=== PATIENT | male | born 1995 | race Caucasian/White ===

== ENCOUNTER 2016-04-17 21:29 | Inpatient (IN) | payer BC, OTHER ==
[~2016-04-17] VITALS: Ht 172.7 cm; Wt 146.1 kg
[2016-04-17] MEDS ORDERED: ONDANSETRON 4MG/2ML VIAL (J2405) As Ordered ONE (22:31)
[2016-04-17] MEDS ORDERED: KETOROLAC 30 MG/ML VIAL (J1885) As Ordered ONE (22:31)
[2016-04-17 22:47] LABS: BASO % 0.7 % (0.0-1.0); EOS % 0.8 % (0.0-3.0); LARGE UNSTAINED CELL # 0.2 K/mm3 (0.0-0.4); LARGE UNSTAINED CELL % 2.6 % (0.0-4.0); LYMPH # 0.7 K/mm3 (1.5-6.5); LYMPH % 11.4 % (24.0-44.0); MEAN CORPUSCULAR HEMOGLOBIN 28.9 pg (27.0-33.0); MEAN CORPUSCULAR HGB CONC 33.9 g/dl (32.0-36.5); MEAN CORPUSCULAR VOLUME 85.3 fl (80.0-96.0); MONO # 0.5 K/mm3 (0.0-0.8); MONO % 8.2 % (0.0-5.0); NEUTROPHILS # 4.5 K/mm3 (1.8-7.7); NEUTROPHILS % 76.4 % (36.0-66.0); PLATELET COUNT, AUTOMATED 246 k/mm3 (150-450); RED CELL DISTRIBUTION WIDTH 12.3 % (11.5-14.5); WHITE BLOOD COUNT 5.8 K/mm3 (4.0-10.0)
[2016-04-17 22:48] LABS: MICROSCOPIC INDICATED? MAN YES (NO)
[2016-04-17 22:50] LABS: RBC, URINE TNTC /hpf (0-3); WBC, URINE 40-50 /hpf (0-3)
[2016-04-17 22:52] LABS: BACTERIA, URINE SMALL AMOUNT; SQUAMOUS EPITHELIAL CELL URINE SMALL AMOUNT /hpf (SMALL AMT)
[2016-04-17 22:53] LABS: HYALINE CAST, URINE NONE SEEN /lpf (0-1); WHITE BLOOD CELL CAST, URINE 0-1 /lpf
[2016-04-17 22:54] LABS: MICROSCOPIC EXAM PERFORMED
[2016-04-17 23:20] LABS: ALBUMIN 3.9 GM/DL (3.2-5.2); ALBUMIN/GLOBULIN RATIO 1.18 (1.00-1.93); ALKALINE PHOSPHATASE 79 U/L (45-117); ALT/SGPT 67 U/L (12-78); AMYLASE 57 U/L (25-115); ANION GAP 9 MEQ/L (8-16); AST/SGOT 32 U/L (15-37); BILIRUBIN,DIRECT 0.1 MG/DL (0.0-0.2); BILIRUBIN,TOTAL 0.5 MG/DL (0.2-1.0); BLOOD UREA NITROGEN 14 MG/DL (7-18); CALCIUM LEVEL 8.4 MG/DL (8.5-10.1); CARBON DIOXIDE LEVEL 29 MEQ/L (21-32); CHLORIDE LEVEL 102 MEQ/L (98-107); CREATININE FOR GFR 1.03 MG/DL (0.70-1.30); GLUCOSE, FASTING 100 MG/DL (70-105); POTASSIUM SERUM 4.2 MEQ/L (3.5-5.1); SODIUM LEVEL 140 MEQ/L (136-145); TOTAL PROTEIN 7.2 GM/DL (6.4-8.2)
--- NOTE | 2016-04-17 23:50 | REPUSA ---
CT of the abdomen and pelvis without contrast Clinical history: pain. Technique: Multiple axial CT images were obtained from the base of the lungs to the floor of the pelv is utilizing 5 mm axial slices without administration of contrast. Coronal and sagittal reconstructio ns were also obtained. Comparison: None. Chest: The visualized lung bases are clear. Abdomen: The kidneys are normal in size bilaterally. There is no evidence of hydronephrosis or nephro lithiasis. The liver, spleen, pancreas, gallbladder and adrenal glands are unremarkable. The aorta de monstrates normal caliber and contour. There is no abdominal lymphadenopathy or ascites. Pelvis: The bowel is unremarkable, with no obstructive or inflammatory changes. The appendix is syd l. The urinary bladder is within normal limits. There is no pelvic lymphadenopathy or ascites. The ot her pelvic structures appear unremarkable. Bones: There are no suspicious osseous abnormalities seen. Impression: Unremarkable CT examination of the abdomen and pelvis.
[2016-04-18] MEDS: PIPERACILLIN/TAZOBACTAM SOD 3.375 GM in D5W MINI-BAG PLUS 50 ML IV SCH ×2
[2016-04-18] MEDS ORDERED: ACETAMINOPHEN 325 MG TAB As Ordered ONE (00:15)
[2016-04-18] MEDS ORDERED: cefTRIAXone SOD 1 GM VIAL (J0696) As Ordered ONE (00:24)
[2016-04-18] MEDS ORDERED: SODIUM CHLORIDE 0.9% 1000 ML IV SCH (00:30)
[2016-04-18] MEDS ORDERED: ONDANSETRON 4MG/2ML VIAL (J2405) IV PRN (00:30)
[2016-04-18] MEDS ORDERED: PERCOCET 5MG/325MG TAB PO PRN (00:30)
--- NOTE | 2016-04-18 01:15 | EDDOCDS ---
Physician Documentation [facility] Name: Mauricio Campoverde Age: 20 yrs Sex: Male : 1995 Arrival Date: 04/17/2016 Time: 21:29 Bed 5 Private MD: Disposition: 04/18/16 00:23 Hospitalization ordered by Nai Hahn for Inpatient Admission. Preliminary diagnosis are Urinary tract infection, site not specified, Fever, unspecified. - Bed requested for M PED. - Status is Inpatient Admission. af2 - Condition is Stable. - Problem is new. - Symptoms are unchanged. Historical: - Allergies: no known allergies; - Home Meds: 1. none - PMHx: none; - PSHx: none; - Social history: Smoking status: Patient states was never smoker of tobacco. No barriers to communication noted, The patient speaks fluent Swedish. - Family history: Not pertinent. - : The pt / caregiver states he / she is not on anticoagulants. Home medication list is obtained from the patient. - Exposure Risk Screening:: None identified. Vital Signs: 04/17 21:30 BP 164 / 89; Pulse 124; Resp 18; Temp 100.4(O); Pulse Ox 99% on R/A; Weight 136.08 kg / lr2 300.01 lbs (R); Height 5 ft. 8 in. (172.72 cm) (R); Pain 3/10; 04/18 00:11 BP 103 / 51; Pulse 106; Resp 18 S; Temp 101(O); Pulse Ox 99% ; Pain 3/10; ajs 04/17 21:30 Body Mass Index 45.62 (136.08 kg, 172.72 cm) lr2 MDM: 04/17 22:20 Financial registration complete. [email or web address] 22:21 [facility] Payment Agreement was scanned into [employer] and attached to record. ks16 22:27 Undress patient appropriately for examination ordered. ck7 22:27 IV Saline Lock ordered. ck7 22:27 NS 0.9% 1000 ml IV at bolus once ordered. ck7 22:27 ketorolac 30 mg IVP once ordered. ck7 22:27 Ondansetron 4 mg IVP once ordered. ck7 22:28 Amylase Ordered. EDMS 22:28 Basic Metabolic Profile Ordered. EDMS 22:28 CBC with Diff Ordered. EDMS 22:28 Lipase Ordered. EDMS 22:28 Liver Profile Ordered. EDMS 22:28 Urine Culture Ordered. EDMS 22:29 NOTHING BY MOUTH+DIET ordered. EDMS 22:29 CT ABD & PELVIS: No Contrast Ordered. EDMS 22:44 URINALYSIS MANUAL Ordered. EDMS 22:45 MICROSCOPIC, URINE Ordered. EDMS 23:01 CBC with Diff Reviewed. ck7 23:01 URINALYSIS MANUAL Reviewed. ck7 23:01 MICROSCOPIC, URINE Reviewed. ck7 23:24 Basic Metabolic Profile Reviewed. ck7 23:24 Amylase Reviewed. ck7 23:24 Lipase Reviewed. ck7 23:24 Liver Profile Reviewed. ck7 04/18 00:12 Acetaminophen Tablet 975 mg PO once ordered. ck7 00:13 CT ABD & PELVIS: No Contrast Reviewed. ck7 00:20 GC & Chlamydia Amplification Ordered. EDMS 00:22 cefTRIAXone 1 grams IVPB once over 30 mins; dilute in 50mL of NS or D5W ordered. ck7 00:23 BED REQUEST+ADM ordered. EDMS 00:28 Admission / Observation Status ordered. EDMS 00:28 REGULAR DIET ordered. EDMS 00:28 BASIC METABOLIC PROFILE Ordered. EDMS 00:29 BLOOD CULTURES Ordered. EDMS 00:36 DIRECT TESSY Ordered. EDMS 00:37 HAPTOGLOBIN Ordered. EDMS 00:38 HEMOSIDERIN URINE Ordered. EDMS 00:45 MICROALBUMIN RANDOM Ordered. EDMS 00:46 CBC WITH DIFFERENTIAL Ordered. EDMS 00:47 LACTATE DEHYDROGENASE Ordered. EDMS 00:47 TOTAL IRON BINDING CAPACIT Ordered. EDMS 01:01 TRANSFERRIN Ordered. EDMS 01:14 SODIUM,RANDOM URINE Ordered. EDMS 01:14 CREATININE,RANDOM URINE Ordered. EDMS Administered Medications: 04/17 22:40 Drug: ketorolac 30 mg [ketorolac 30 mg/mL (1 mL) injection solution (1 mL)] Route: IVP; [facility] Site: left antecubital; 22:40 Drug: Ondansetron 4 mg Route: IVP; Site: left antecubital; [facility] 22:41 Drug: NS 0.9% 1000 ml Route: IV; Rate: bolus; Site: left antecubital; [facility] 04/18 00:40 Follow up: IV Status: Completed infusion; IV Intake: 1000ml ko2 00:21 Drug: Acetaminophen 975 mg [acetaminophen 325 mg tablet (3 tabs)] Route: PO; ko2 00:40 Drug: cefTRIAXone 1 grams [ceftriaxone 1 gram solution for injection] Route: IVPB; ko2 Infused Over: 30 mins; Site: left antecubital; Signatures: Dispatcher [employer] Tahira Paulson, RN RN Perez Palacios, JOHANNA-C RPA-Cck7 Erica Pacheco, Statistical Clerk Unit Shahida Galindo RN RN ko2 Heather Dickens RN RN af2 Elizabeth Harmon, Reg Reg ks16 Inga Sommers RN [facility] The chart was reviewed and I authenticate all verbal orders and agree with the evaluation and treatment provided.Corrections: (The following items were deleted from the chart) 04/17 22:44 22:28 URINALYSIS+LAB ordered. EDMS EDMS 22:55 22:49 MICROSCOPIC, URINE ordered. EDMS EDMS 04/18 00:42 00:37 RETICULOCYTE COUNT ordered. EDMS EDMS 00:44 00:29 CBC WITH DIFFERENTIAL ordered. EDMS EDMS 00:47 00:37 LACTATE DEHYDROGENASE ordered. EDMS EDMS 00:47 00:37 IRON (FE) ordered. EDMS EDMS 00:48 00:37 TOTAL IRON BINDING CAPACIT ordered. EDMS EDMS 01:01 00:37 TRANSFERRIN ordered. EDMS EDMS Attachments: 04/17 22:21 [facility] Payment Agreement [email or web address] MTDD
--- NOTE | 2016-04-18 01:16 | EDDOCDS ---
Nurse's Notes [facility] Name: Mauricio Campoverde Age: 20 yrs Sex: Male : 1995 Arrival Date: 04/17/2016 Time: 21:29 Bed 5 Private MD: Diagnosis: Urinary tract infection, site not specified;Fever, unspecified Presentation: 04/17 21:40 Presenting complaint: Patient states: Sick since yesterday--headache, urine dark, back mcp pain and lower abdominal pain. Risk factors: the patient reports not having a history of previous torsion. Adult Sepsis Screening: The patient does not have new or worsening altered mentation. Patient's respiratory rate is less than 22. Systolic blood pressure is greater than 100. Patient has a qSOFA score of 0- Negative Sepsis Screen. Suicide/Homicide risk assessment- the patient denies having any suicidal and/or homicidal ideations and does not present with any other emotional, behavioral or mental health complaints. Status: Patient is not a environmental services specialist or dependent. Transition of care: patient was not received from another setting of care. 21:40 Acuity: SAVI Level 3 [facility] 21:40 Method Of Arrival: Walkin/Carried/Asstd [facility] Triage Assessment: 21:41 General: Appears uncomfortable, Behavior is cooperative. Pain: Location: back, right mcp lower quadrant and left lower quadrant Pain currently is 3 out of 10 on a pain scale. HIV screening NA for this visit Offered previously. Neurological: No deficits noted. Respiratory: Airway is patent Respiratory effort is even, unlabored. GI: Reports lower abdominal pain. : Reports dark urine. Derm: Skin is pink, warm & dry. Historical: - Allergies: no known allergies; - Home Meds: 1. none - PMHx: none; - PSHx: none; - Social history: Smoking status: Patient states was never smoker of tobacco. No barriers to communication noted, The patient speaks fluent Indonesian. - Family history: Not pertinent. - : The pt / caregiver states he / she is not on anticoagulants. Home medication list is obtained from the patient. - Exposure Risk Screening:: None identified. Screenin/26 00:42 Screening information is obtained from the patient. Fall risk: No risks identified. ko2 Assistance ADL's: requires no assistance with activities of daily living. Abuse/DV Screen: The patient / caregiver reports he/she is: not in a situation that causes fear, pain or injury. Nutritional screening: No deficits noted. Advance Directives: Currently, there is no health care proxy. There is no active DNR order. There is no living will. There is no Power of Forming Department End Finder. home support is adequate. Assessment: 04/17 22:30 General: Appears in no apparent distress, comfortable, Behavior is appropriate for age, ko2 cooperative. Pain: Location: back Pain. Neurological: Level of Consciousness is awake, alert, Oriented to person, place, time. Respiratory: Airway is patent Respiratory effort is even, unlabored. GI: Abdomen is obese, Bowel sounds present X 4 quads. Abd is soft and non tender. : Urine is blood tinged. Derm: Skin is normal. 23:30 General: Appears in no apparent distress, comfortable, Behavior is appropriate for age, ko2 cooperative. Pain: Location: back Pain currently is 4 out of 10 on a pain scale. Neurological: Level of Consciousness is awake, alert. Respiratory: Airway is patent Respiratory effort is even, unlabored. Derm: Skin is normal. 04/18 00:30 General: Appears in no apparent distress, comfortable, Behavior is appropriate for age, ko2 cooperative. Neurological: Level of Consciousness is awake, alert. Respiratory: Airway is patent Respiratory effort is even, unlabored. Derm: Skin is normal. Musculoskeletal: Range of motion intact in all extremities. 01:11 General: report given to peds at this time. resp easy and unlabored. hospitalist at af2 bedside. will continue to monitor. . Vital Signs: 04/17 21:30 BP 164 / 89; Pulse 124; Resp 18; Temp 100.4(O); Pulse Ox 99% on R/A; Weight 136.08 kg lr2 (R); Height 5 ft. 8 in. (172.72 cm) (R); Pain 3/10; 04/18 00:11 BP 103 / 51; Pulse 106; Resp 18 S; Temp 101(O); Pulse Ox 99% ; Pain 3/10; ajs 04/17 21:30 Body Mass Index 45.62 (136.08 kg, 172.72 cm) lr2 Vitals: 04/17 21:30 Log In Time: April 17, 2016 at 21:29. lr2 ED Course: 21:30 Patient visited by Jamilah Man. lr2 21:30 Patient moved to Waiting lr2 21:32 Patient moved to Pre RCE lr2 21:41 Triage Initiated mcp 21:42 Patient visited by Tahira Martin, JOE. mcp 21:42 Patient moved to Triage 1 mcp 22:11 Perez Roman RPA-C is [facility]. ck7 22:11 Raf Roth DO is Attending Physician. ck7 22:11 Patient visited by Perez Roman RPA-C. ck7 22:21 [facility] Payment Agreement was scanned into [employer] and attached to record. ks16 22:24 Shahida Yarbrough,RN is Primary Nurse. kmg1 22:24 Patient moved to I5 / M5 kmg1 22:41 Amylase Sent. ko2 22:41 Basic Metabolic Profile Sent. ko2 22:41 CBC with Diff Sent. ko2 22:41 Lipase Sent. ko2 22:41 Liver Profile Sent. ko2 22:41 Urine Culture Sent. ko2 22:42 Patient visited by Inga Sommers RN. [facility] 23:00 Inserted saline lock: 20 gauge in left antecubital area and blood collected. The ko2 patient tolerated the procedure well. 23:24 Patient visited by Perez Roman RPA-C. ck7 04/18 00:05 Patient visited by Perez Roman RPA-C. ck7 00:12 CT ABD & PELVIS: No Contrast Returned. EDMS 00:23 Nai Hahn is Hospitalizing Provider. ck7 00:23 GC & Chlamydia Amplification Sent. ko2 00:28 Heather Dickens RN is Primary Nurse. jlm 00:28 Patient moved to jl 00:43 The patient / caregiver is instructed regarding the plan of care and ED course. ko2 01:12 No procedures done that require assistance. af2 01:13 Patient visited by Heather Dickens RN. af2 Administered Medications: 04/17 22:40 Drug: ketorolac 30 mg [ketorolac 30 mg/mL (1 mL) injection solution (1 mL)] Route: IVP; [facility] Site: left antecubital; 22:40 Drug: Ondansetron 4 mg Route: IVP; Site: left antecubital; [facility] 22:41 Drug: NS 0.9% 1000 ml Route: IV; Rate: bolus; Site: left antecubital; [facility] 04/18 00:40 Follow up: IV Status: Completed infusion; IV Intake: 1000ml ko2 00:21 Drug: Acetaminophen 975 mg [acetaminophen 325 mg tablet (3 tabs)] Route: PO; ko2 00:40 Drug: cefTRIAXone 1 grams [ceftriaxone 1 gram solution for injection] Route: IVPB; ko2 Infused Over: 30 mins; Site: left antecubital; Intake: 00:40 IV: 1000.00ml; Total: 1000.00ml. ko2 Order Results: Lab Order: Amylase; SPEC' 04/17/16 22:36 Test: AMYLASE; Value: 57; Range: 25-115; Units: U/L; Status: F Lab Order: Basic Metabolic Profile; [facility] 04/17/16 22:36 Test: GLUCOSE, FASTING; Value: 100; Range: 70-105; Units: MG/DL; Status: F Test: BLOOD UREA NITROGEN; Value: 14; Range: 7-18; Units: MG/DL; Status: F Test: CREATININE FOR GFR; Value: 1.03; Range: 0.70-1.30; Units: MG/DL; Status: F Test: SODIUM LEVEL; Value: 140; Range: 136-145; Units: MEQ/L; Status: F Test: POTASSIUM SERUM; Value: 4.2; Range: 3.5-5.1; Units: MEQ/L; Status: F Test: CHLORIDE LEVEL; Value: 102; Range: 98-107; Units: MEQ/L; Status: F Test: CARBON DIOXIDE LEVEL; Value: 29; Range: 21-32; Units: MEQ/L; Status: F Test: ANION GAP; Value: 9; Range: 8-16; Units: MEQ/L; Status: F Test: CALCIUM LEVEL; Value: 8.4; Range: 8.5-10.1; Abnormal: Below low normal; Units: MG/DL; Status: F Lab Order: CBC with Diff; SPEC' 04/17/16 22:36 Test: WHITE BLOOD COUNT; Value: 5.8; Range: 4.0-10.0; Units: K/mm3; Status: F Test: RED BLOOD COUNT; Value: 5.00; Range: 4.30-6.10; Units: M/mm3; Status: F Test: HEMOGLOBIN; Value: 14.5; Range: 14.0-18.0; Units: g/dl; Status: F Test: HEMATOCRIT; Value: 42.7; Range: 42.0-52.0; Units: %; Status: F Test: MEAN CORPUSCULAR VOLUME; Value: 85.3; Range: 80.0-96.0; Units: fl; Status: F Test: MEAN CORPUSCULAR HEMOGLOBIN; Value: 28.9; Range: 27.0-33.0; Units: pg; Status: F Test: MEAN CORPUSCULAR HGB CONC; Value: 33.9; Range: 32.0-36.5; Units: g/dl; Status: F Test: RED CELL DISTRIBUTION WIDTH; Value: 12.3; Range: 11.5-14.5; Units: %; Status: F Test: PLATELET COUNT, AUTOMATED; Value: 246; Range: 150-450; Units: k/mm3; Status: F Test: NEUTROPHILS %; Value: 76.4; Range: 36.0-66.0; Abnormal: Above high normal; Units: %; Status: F Test: LYMPH %; Value: 11.4; Range: 24.0-44.0; Abnormal: Below low normal; Units: %; Status: F Test: MONO %; Value: 8.2; Range: 0.0-5.0; Abnormal: Above high normal; Units: %; Status: F Test: EOS %; Value: 0.8; Range: 0.0-3.0; Units: %; Status: F Test: BASO %; Value: 0.7; Range: 0.0-1.0; Units: %; Status: F Test: LARGE UNSTAINED CELL %; Value: 2.6; Range: 0.0-4.0; Units: %; Status: F Test: NEUTROPHILS #; Value: 4.5; Range: 1.8-7.7; Units: K/mm3; Status: F Test: LYMPH #; Value: 0.7; Range: 1.5-6.5; Abnormal: Below low normal; Units: K/mm3; Status: F Test: MONO #; Value: 0.5; Range: 0.0-0.8; Units: K/mm3; Status: F Test: EOS #; Value: 0.0; Range: 0.0-0.50; Units: K/mm3; Status: F Test: BASO #; Value: 0.0; Range: 0.0-0.2; Units: K/mm3; Status: F Test: LARGE UNSTAINED CELL #; Value: 0.2; Range: 0.0-0.4; Units: K/mm3; Status: F Lab Order: Lipase; [facility] 04/17/16 22:36 Test: LIPASE; Value: 103; Range: 73-393; Units: U/L; Status: F Lab Order: Liver Profile; [facility] 04/17/16 22:36 Test: AST/SGOT; Value: 32; Range: 15-37; Units: U/L; Status: F Test: ALT/SGPT; Value: 67; Range: 12-78; Units: U/L; Status: F Test: ALKALINE PHOSPHATASE; Value: 79; Range: 45-117; Units: U/L; Status: F Test: BILIRUBIN,TOTAL; Value: 0.5; Range: 0.2-1.0; Units: MG/DL; Status: F Test: BILIRUBIN,DIRECT; Value: 0.1; Range: 0.0-0.2; Units: MG/DL; Status: F Test: TOTAL PROTEIN; Value: 7.2; Range: 6.4-8.2; Units: GM/DL; Status: F Test: ALBUMIN; Value: 3.9; Range: 3.2-5.2; Units: GM/DL; Status: F Test: ALBUMIN/GLOBULIN RATIO; Value: 1.18; Range: 1.00-1.93; Status: F Lab Order: URINALYSIS MANUAL; [facility] 04/17/16 22:36 Test: APPEARANCE, URINE MANUAL; Value: CLOUDY; Range: CLEAR; Abnormal: Above high normal; Status: F Test: COLOR, URINE MANUAL; Value: BROWN; Range: YELLOW; Abnormal: Above high normal; Status: F Test: PH,URINE MAN; Value: 5.5; Range: 5.0 - 9.0; Units: UNITS; Status: F Test: SPECIFIC GRAVITY,URINE MANUAL; Value: 1.020; Range: 1.002-1.035; Status: F Test: PROTEIN, URINE MANUAL; Value: 3+; Range: NEGATIVE; Abnormal: Above high normal; Units: mg/dL; Status: F Test: GLUCOSE, URINE (UA) MANUAL; Value: NEGATIVE; Range: NEGATIVE; Units: mg/dL; Status: F Test: KETONE, URINE MANUAL; Value: NEGATIVE; Range: NEGATIVE; Units: mg/dL; Status: F Test: UROBILINOGEN, URINE MANUAL; Value: NORMAL; Range: NORMAL; Units: mg/dl; Status: F Test: BILIRUBIN, URINE MANUAL; Value: NEGATIVE; Range: NEGATIVE; Status: F Test: NITRITE, URINE MANUAL; Value: NEGATIVE; Range: NEGATIVE; Status: F Test: LEUKOCYTE ESTERASE, URINE MAN; Value: POSITIVE; Range: NEGATIVE; Abnormal: Above high normal; Status: F Test: BLOOD URINE MANUAL; Value: POSITIVE; Range: NEGATIVE; Abnormal: Above high normal; Status: F Lab Order: MICROSCOPIC, URINE; SPEC'M 04/17/16 22:36 Test: WBC, URINE; Value: 40-50; Range: 0-3; Units: /hpf; Status: F Test: RBC, URINE; Value: TNTC; Range: 0-3; Abnormal: Above high normal; Units: /hpf; Status: F Test: SQUAMOUS EPITHELIAL CELL URINE; Value: SMALL AMOUNT; Range: SMALL AMT; Units: /hpf; Status: F Test: BACTERIA, URINE; Value: SMALL AMOUNT; Range: NONE; Abnormal: Above high normal; Status: F Test: HYALINE CAST, URINE; Value: NONE SEEN; Range: 0-1; Units: /lpf; Status: F Test: MICROSCOPIC EXAM; Status: I Test: WHITE BLOOD CELL CAST, URINE; Value: 0-1; Range: NONE; Units: /lpf; Status: F Test: MUCUS, URINE; Value: SMALL AMOUNT; Range: NEGATIVE; Abnormal: Above high normal; Status: F Test: AMORPHOUS SEDIMENT, URINE; Value: MOD AMOUNT; Range: NEGATIVE; Abnormal: Above high normal; Status: F Test: MICROSCOPIC EXAM; Value: PERFORMED; Status: F Lab Order: RETICULOCYTE COUNT; SPEC'M 04/17/16 22:36 Test: RETICULOCYTE % [id number]; Range: 0.5-1.5; Units: %; Status: I Test: RETICULOCYTE ABSOLUTE [id number]; Range: 17-77; Units: x10(9)/L; Status: I Lab Order: LACTATE DEHYDROGENASE; SPEC'M 04/17/16 22:36 Test: LDH LACTATE DEHYDROGENASE; Range: 87-241; Units: U/L; Status: I Lab Order: TOTAL IRON BINDING CAPACIT; SPEC'M 04/17/16 22:36 Test: IRON (FE); Range: 65-175; Units: UG/DL; Status: I Test: TOTAL IRON BINDING CAPACITY; Range: 250-450; Units: UG/DL; Status: I Test: PERCENT SATURATION; Range: 19.7-37.4; Units: %; Status: I Radiology Order: CT ABD & PELVIS: No Contrast Test: CT ABD & PELVIS: No Contrast REASON FOR EXAMINATION: Renal colic; ; CT of the abdomen and pelvis without contrast; Clinical history: pain.; Technique: Multiple axial CT images were obtained from the base of the lungs to the floor of the pelv; is utilizing 5 mm axial slices without administration of contrast. Coronal and sagittal reconstructio; ns were also obtained.; Comparison: None.; Chest: The visualized lung bases are clear.; Abdomen: The kidneys are normal in size bilaterally. There is no evidence of hydronephrosis or nephro; lithiasis. The liver, spleen, pancreas, gallbladder and adrenal glands are unremarkable. The aorta de; monstrates normal caliber and contour. There is no abdominal lymphadenopathy or ascites.; Pelvis: The bowel is unremarkable, with no obstructive or inflammatory changes. The appendix is syd; l. The urinary bladder is within normal limits. There is no pelvic lymphadenopathy or ascites. The ot; her pelvic structures appear unremarkable.; Bones: There are no suspicious osseous abnormalities seen.; Impression: Unremarkable CT examination of the abdomen and pelvis.; ; Outcome: 00:23 Decision to Hospitalize by Provider. ck7 00:43 CT Study completed. ko2 01:12 Discharge Assessment: Patient awake, alert and oriented x 3. No cognitive and/or af2 functional deficits noted. Patient verbalized understanding of disposition instructions. patient administered narcotics - no. The following High Risk Discharge criteria are identified: None. Discharged to home ambulatory. Condition: stable. Property :Personal belongings accompany Pt. 01:14 Patient left the ED. af2 Signatures: Dispatcher [employer] EDMS Christine Lane, RN RN kmg1 Tahira Martin, RN Edyta Kinsey mcp, JaneRN RN [facility] Perez Roman, RPA-C RPA-Cck7 Erica Pacheco, Wax Ball Knock Out Worker Unit m Shahida Yarbrough RN RN ko2 Heather Dickens RN RN af2 Elizabeth Harmon, Reg Reg ks16 Jamilah Man2 Corrections: (The following items were deleted from the chart) 04/17 22:44 22:41 URINALYSIS+LAB sent. [facility] EDMS MTDD
[2016-04-18 01:20] VITALS: BP 115/54
[2016-04-18 01:22] LABS: RETIC HEMOGLOBIN CONTENT CHr 29.7 PG (24-36); RETICULOCYTE % ADVIA2120 2.25 % (0.5-1.5); RETICULOCYTE ABSOLUTE ADVIA212 115 x10(9)/L (17-77)
[2016-04-18 01:44] LABS: PERCENT SATURATION 8.7 % (19.7-37.4); TOTAL IRON BINDING CAPACITY 335 UG/DL (250-450)
[2016-04-18] MEDS: cefTRIAXone SOD 1 GM in D5W MINI-BAG PLUS 50 ML IV SCH ×2 (02:25→20:14)
[2016-04-18] MEDS ORDERED: NS 1,000 ML IV SCH ×2 (02:30→21:30)
--- NOTE | 2016-04-18 02:40 | HPE ---
DATE OF ADMISSION: 04/18/2016 PRIMARY CARE PHYSICIAN: None. 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. INPATIENT HOSPITAL ATTENDING: Dr. Aries Meier CHIEF COMPLAINT: Headache, back pain, and dark urine. HISTORY OF PRESENT ILLNESS: 20-year-old male with no past medical history aside from two episodes of urinary tract infection (UTI), one was a year ago, the other was about a year and six months ago treated with oral antibiotics for 7-10 days, presents to the emergency room with 2-day history of bilateral flank pain, dark urine, and headache. Patient has been in his usual state of health until yesterday morning when he got up to work. 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 He noticed very dark urine and felt that he was dehydrated. He started to drink about 2-3 liters of liquid throughout the day into the late evening. He continued to not feel well and did not sleep well into the night. When he woke up this morning, he had complaints of generalized headache without changes in vision described as achy lasting for just a few hours, slightly improved with Aleve that he took the day before, 400 mg. He had persistent bilateral flank pain without radiation prompting him to present to the emergency room. Patient denies any prior history of kidney stones and stated that he has had "dark urine" before, but not this bad. In the emergency room (ER), he was found to have a temperature of 100.4 with a T-max of 101, blood pressure was 103/51. Patient was noted to have abnormal urinalysis with positive leukocyte esterase, 50 white blood cells, and 3+ bacteria. Hospitalist service was called for admission for possible complicated urinary tract infection. CT abdomen and pelvis showed no kidney stones, no hydronephrosis, no suspicious abnormalities. PAST MEDICAL HISTORY: Two prior urinary tract infections, one was one year ago, the other was about 18 months ago, treated with oral antibiotics for one week. ALLERGIES: No known drug allergies. HOME MEDICATIONS: - Aleve PAST SURGICAL HISTORY: None. SOCIAL HISTORY: Denies any cigarette use, alcohol, or recreational drug use. 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 FAMILY HISTORY: Mother alive in her 40s with irritable bowel syndrome. Father alive in his 40s, no medical problems. On the maternal side, history of cancer in both grandparents. REVIEW OF SYSTEMS: As per history of present illness (HPI). 12-point systems otherwise negative. PHYSICAL EXAMINATION: VITAL SIGNS: Temperature 101, pulse 106, sinus tachycardia, blood pressure 103/51, 99% in room air, 136.08 kg, 5 feet 8 inches tall. GENERAL: Patient is awake, alert, and oriented, times three, answering questions appropriately. No icterus, no jaundice. HEENT: Pupils are equally round and reactive to light and accommodation. Extraocular movements are intact. Normocephalic, atraumatic. Dry mucous membranes. NECK: No cervical lymphadenopathy, thyromegaly, or pharyngeal erythema. LUNGS: Clear to auscultation. No wheezing, rales, or rhonchi. HEART: S1, S2, sinus tachycardia. No murmurs, rubs, or gallops. ABDOMEN: Obese, soft, nontender. Positive bowel sounds times four quadrants. Bilateral back pain. No vertebral tenderness. EXTREMITIES: No cyanosis, clubbing, or any pitting edema. LABORATORY DATA: White count 5.8, hemoglobin 14, hematocrit 42, platelet count 246, 76% neutrophils. Sodium 140, potassium 4.2, chloride 102, bicarbonate 29, BUN 14, creatinine 1, glucose of 100, calcium of 8.4, total bilirubin 0.5, direct bilirubin 0.1, AST 32, ALT 67, alkaline phosphatase 79, LDH is pending. Total protein 7.2, albumin of 3.9, amylase 57, lipase of 103. CT of abdomen and pelvis: Unremarkable. No hydronephrosis or kidney stones. Urinalysis: Brown in color, cloudy urine, 3+ protein, positive urine blood, positive leukocyte esterase, too numerous to count RBC, 40-50 WBC, small amount of bacteria, small mucous. ASSESSMENT AND PLAN: This is a 20-year-old male with two prior histories of urinary tract infections treated with oral antibiotics a year ago and 18 months ago, presents to the emergency room with a 2-day history of feeling unwell, describes bilateral flank pain, headache, and dark urine. Patient will be admitted for observation under hospitalist service, will be assigned to Dr. Aries Meier. IMPRESSION: 1. Complicated urinary tract infection. At this time, the patient will be given intravenous ceftriaxone, IV fluids. Due to a pressure of 108 systolic, he will be given a liter of normal saline IV bolus, monitor intake and output and IV ceftriaxone. Await urine culture results and obtain a blood culture. There is no kidney stone or hydronephrosis. Creatinine is normal, therefore, I will not consult urology at this time. Due to recurrent urinary tract infections, his primary care physician should refer him to urology as an outpatient for followup. 2. Proteinuria. May be transient. In light of patient's current urinary tract infection, he may benefit from repeat urinalysis as an outpatient to determine whether there is a significant amount of microalbuminuria. Check urine microalbumin to rule out glomerular disease. 3. Dark colored urine with complaints of headache. Differential diagnosis for purvi-colored urine includes paroxysmal nocturnal hemoglobinuria. Patient does not exhibit any significant anemia. In [facility], Anemia may not be present, therefore , we will check reticulocyte count. Check LDH and check direct Wood test if suspicious for paroxysmal nocturnal hemoglobinuria ([facility]). Proceed with definitive evaluation. 4. Headache. Appears to be tension headache. Tylenol as needed for now. No other thrombotic symptoms to suggest further evaluation. 5. Deep vein thrombosis (DVT) prophylaxis. Patient is ambulatory. May benefit from compression stockings. In light of recent hematuria, we will refrain from any anticoagulant therapy. MTDD
[2016-04-18 04:00] VITALS: BP 126/72
[2016-04-18 06:48] LABS: BASO % 0.7 % (0.0-1.0); EOS % 0.5 % (0.0-3.0); LARGE UNSTAINED CELL # 0.1 K/mm3 (0.0-0.4); LARGE UNSTAINED CELL % 3.1 % (0.0-4.0); LYMPH # 0.5 K/mm3 (1.5-6.5); LYMPH % 11.8 % (24.0-44.0); MEAN CORPUSCULAR HEMOGLOBIN 28.4 pg (27.0-33.0); MEAN CORPUSCULAR HGB CONC 32.9 g/dl (32.0-36.5); MEAN CORPUSCULAR VOLUME 86.2 fl (80.0-96.0); MONO # 0.4 K/mm3 (0.0-0.8); NEUTROPHILS # 3.3 K/mm3 (1.8-7.7); PLATELET COUNT, AUTOMATED 196 k/mm3 (150-450); RED CELL DISTRIBUTION WIDTH 12.5 % (11.5-14.5); WHITE BLOOD COUNT 4.4 K/mm3 (4.0-10.0)
[2016-04-18 07:15] LABS: ANION GAP 12 MEQ/L (8-16); BLOOD UREA NITROGEN 16 MG/DL (7-18); CALCIUM LEVEL 8.2 MG/DL (8.5-10.1); CARBON DIOXIDE LEVEL 24 MEQ/L (21-32); CHLORIDE LEVEL 107 MEQ/L (98-107); CREATININE FOR GFR 0.97 MG/DL (0.70-1.30); GLUCOSE, FASTING 97 MG/DL (70-105); POTASSIUM SERUM 3.9 MEQ/L (3.5-5.1); SODIUM LEVEL 143 MEQ/L (136-145)
[2016-04-18 07:43] LABS: RETIC HEMOGLOBIN CONTENT CHr 29.1 PG (24-36); RETICULOCYTE ABSOLUTE ADVIA212 85 x10(9)/L (17-77)
[2016-04-18 07:48] LABS: ALBUMIN 3.3 GM/DL (3.2-5.2); ALBUMIN/GLOBULIN RATIO 1.03 (1.00-1.93); ALKALINE PHOSPHATASE 75 U/L (45-117); ALT/SGPT 62 U/L (12-78); AST/SGOT 27 U/L (15-37); BILIRUBIN,DIRECT 0.2 MG/DL (0.0-0.2); BILIRUBIN,TOTAL 0.5 MG/DL (0.2-1.0); FERRITIN 261 NG/ML (26-388); TOTAL PROTEIN 6.5 GM/DL (6.4-8.2)
[2016-04-18 08:00] VITALS: BP 175/73
[2016-04-18] MEDS: ACETAMINOPHEN TAB 650MG DOSE (2X325MG) PO PRN ×2 (08:03→20:14)
[2016-04-18 08:25] LABS: MICROSCOPIC INDICATED? MAN YES (NO)
[2016-04-18 08:42] LABS: RBC, URINE TNTC /hpf (0-3); WBC, URINE 15-20 /hpf (0-3)
[2016-04-18 08:48] LABS: SQUAMOUS EPITHELIAL CELL URINE NONE SEEN /hpf (SMALL AMT)
[2016-04-18 08:49] LABS: BACTERIA, URINE SMALL AMOUNT; HYALINE CAST, URINE NONE SEEN /lpf (0-1); MICROSCOPIC EXAM PERFORMED
[2016-04-18 16:00] VITALS: BP 154/84
[2016-04-18 20:00] VITALS: BP 133/58
[2016-04-18] MEDS: FIORICET TAB PO PRN (20:19)
[2016-04-19] VITALS (9 sets, daily range): BP systolic 122–170; BP diastolic 60–99; PULSE 103
[2016-04-19] MEDS: PIPERACILLIN/TAZOBACTAM SOD 3.375 GM in D5W MINI-BAG PLUS 50 ML IV SCH ×2 (05:31→14:12)
[2016-04-19] MEDS: ACETAMINOPHEN TAB 650MG DOSE (2X325MG) PO PRN (05:36)
[2016-04-19] MEDS: FIORICET TAB PO PRN (05:36)
[2016-04-19 07:08] LABS: BASO % 0.3 % (0.0-1.0); EOS % 0.6 % (0.0-3.0); LARGE UNSTAINED CELL # 0.2 K/mm3 (0.0-0.4); LARGE UNSTAINED CELL % 3.6 % (0.0-4.0); LYMPH # 0.6 K/mm3 (1.5-6.5); LYMPH % 12.5 % (24.0-44.0); MEAN CORPUSCULAR HEMOGLOBIN 28.1 pg (27.0-33.0); MEAN CORPUSCULAR HGB CONC 33.4 g/dl (32.0-36.5); MEAN CORPUSCULAR VOLUME 84.2 fl (80.0-96.0); MONO # 0.4 K/mm3 (0.0-0.8); MONO % 8.1 % (0.0-5.0); NEUTROPHILS # 3.8 K/mm3 (1.8-7.7); NEUTROPHILS % 74.9 % (36.0-66.0); PLATELET COUNT, AUTOMATED 175 k/mm3 (150-450); RED CELL DISTRIBUTION WIDTH 12.4 % (11.5-14.5); WHITE BLOOD COUNT 5.1 K/mm3 (4.0-10.0)
[2016-04-19 07:21] LABS: ANION GAP 9 MEQ/L (8-16); BLOOD UREA NITROGEN 9 MG/DL (7-18); CALCIUM LEVEL 8.1 MG/DL (8.5-10.1); CARBON DIOXIDE LEVEL 26 MEQ/L (21-32); CHLORIDE LEVEL 105 MEQ/L (98-107); GLUCOSE, FASTING 106 MG/DL (70-105); SODIUM LEVEL 140 MEQ/L (136-145)
[2016-04-19] MEDS ORDERED: ISOVUE-370 76% 100ML VIAL (Q9967) As Ordered ONE (11:56)
--- NOTE | 2016-04-19 12:53 | REP ---
TWO VIEW CHEST: Two views. There is no evidence of acute infiltrate. No pleural effusion is seen. The heart is normal in size. The mediastinal silhouette is unremarkable. The visualized osseous structures are intact. IMPRESSION: No acute pulmonary disease. Signed by Saeid Arciniega MD 04/19/2016 04:58 P
--- NOTE | 2016-04-19 13:48 | REP ---
RENAL AND BLADDER ULTRASOUND: Real-time sonographic evaluation of kidneys performed. Kidneys are normal in size and echotexture, right kidney measuring 15.0 x 8.0 x 6.7 cm and left kidney 16.0 x 5.2 x 7.3 cm. There is no hydronephrosis or nephrolithiasis. No renal mass is seen. Urinary bladder is mildly distended measuring 7.5 x 7.6 x 5.7 cm with no mass or calculus. IMPRESSION: Negative renal and bladder ultrasound. Signed by Saeid Arciniega MD 04/19/2016 04:59 P
[2016-04-19] MEDS ORDERED: HEPARIN SOD (PORCINE) 5000 UNITS/ML VIAL SQ SCH (14:00)
[2016-04-19] MEDS ORDERED: ASPIRIN 81 MG CHEW TABLET PO ONE (15:30)
[2016-04-19] MEDS ORDERED: ATOR1TAB21 PO (15:47)
[2016-04-19] MEDS ORDERED: ASPI81TA PO (15:47)
[2016-04-19] MEDS ORDERED: LOVE0.8I3 SC (15:47)
[2016-04-19] MEDS ORDERED: ATORVASTATIN 20 MG TAB PO ONE (16:00)
--- NOTE | 2016-04-19 16:35 | DSES ---
DATE OF ADMISSION: 04/19/2016 DATE OF DISCHARGE: PRIMARY CARE PROVIDER: None. FINAL DIAGNOSES: 1. ST elevation myocardial infarction (STEMI) versus myocarditis versus pericarditis. 2. Complicated urinary tract infection (UTI). 3. Proteinuria. 4. Headache. 5. Chest pain. HISTORY OF PRESENT ILLNESS: This is a 20-year-old male patient with no significant past medical history other than obesity, had two episodes of UTI, one a year ago, the other one about 6 months ago, treated with oral antibiotics for 7-10 days, presented to the emergency room for 2-day history of bilateral flank pain, dark urine, and headache. Patient was in his usual state of health until about 2 days ago when the patient got up to work. 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 He noticed very dark urine and felt that he was dehydrated and started to drink about 2-3 liters of liquid throughout the day into the late evening and continued to feel not well, did not sleep, and was feeling flustered and warm. Woke up in the morning of his admission with generalized weakness and headache without any vision change, with no nausea or vomiting. Taken Aleve with improvement but still had persistent bilateral flank pain, worse on the right, without radiation. Presented to the emergency room. Denies history of kidney stone. In the emergency department (ED), patient was found to have a fever of 101 and subsequently admitted for UTI. Started initially on Rocephin, later switched to Zosyn given persistent fever. CT scan of the abdomen was initially done without contrast, was negative. Repeat CT urogram shows normal kidney, ureters, and bladder with multiple mesenteric lymph nodes present and vast majority of which are less than 1 cm in short dimension with mild enlarged lymph nodes in the right lower quadrant measuring about 1.5 cm. An ultrasound of the kidneys was done and was also within normal limits. During the process of the CT scan, patient reported having chest pain prior to the contrast injection, and patient reported the symptoms after patient returned to the floor and after the CT phan. Subsequent EKG was done, showing questionable ST segment elevations in V2 and V3 with sinus tachycardia of 104. Case was discussed with Dr. Thomas. D-dimer was also obtained. Cardiac enzymes were obtained. Patient was initially given a dose of therapeutic Lovenox in the process of ruling out pulmonary embolism and, in the meantime, troponin came back at 8.94. Case was discussed with Dr. Thomas, and subsequently transfer was arranged to [facility] for further cardiac care. Aspirin 324 mg by mouth once was given. Lipitor 40 mg by mouth once was given. Patient was transferred to progressive care unit (PCU). Lovenox 140 mg subcutaneously once has also been given to the patient. Patient has been treated with Zosyn while the patient is on the floor. Culture has been negative to date. Respiratory panel for viral infection has also been negative. Patient currently reported 4/10 pain, saying the chest pain has been improving. VITAL SIGNS: 99.3, pulse 108, respirations 18, blood pressure 137/90, pulse oximetry 100% on room air. LABORATORY: WBC 5.1, hemoglobin and hematocrit 12.9/38.5, platelets 175. Chemistry: Sodium 140, potassium 4, chloride 105, bicarbonate 26, BUN 9, creatinine 0.9. Cardiac enzymes: Total CK 498, CK-MB 36.6, CK-MB index 7.34, troponin 8.94, C-reactive protein 8.3. INPATIENT MEDICATION: - Zosyn 3.375 IV every 8 hours - Fioricet one tablet by mouth every 6 hours as needed headache - acetaminophen 650 mg by mouth every 4 hours as needed - aspirin 324 mg by mouth once - Lipitor 40 mg by mouth once - Lovenox 140 mg subcutaneously twice a day - Zofran 4 mg IV every 6 hours as needed - Percocet 5/325 mg one tablet by mouth every 4 hours as needed V/Q scan to rule out pulmonary embolism (PE) has not been done. Echocardiogram has also not been done yet. DISCHARGE INSTRUCTION: Patient instructed to followup with providers at [facility], cardiology, and please consider infectious disease consultation if patient's persistent fever worsens. Followup with primary care provider after discharge. ADDENDUM: Earlier today when the patient was having chest pain on 04/19/2016, patient reported that overnight he was concerned because there was some blood clots in the patient's IV and was subsequently flushed. Patient was concerned that that can be the cause of patient's chest pain and possible inducing a PE. Patient was reassured given patient is currently receiving Lovenox, but V/Q scan has not been done and will need to be followed up once the patient reaches the destination at [facility]. Patient currently receiving therapeutic Lovenox and has echocardiogram ordered but will not be done given patient is being transferred. Addendum dictated: JOAQUIN 04/19/2016 1626 Addendum transcribed: galo 04/19/2016 [id number]
[2016-04-19] MEDS ORDERED: ENOXAPARIN 150 MG/ML SYR (J1650) SC SCH (18:00)
--- NOTE | 2016-04-19 19:03 | ECGEPIP ---
Stationary ECG Study [facility] Test Date: 2016-04-19 Pat Name: STEVE MEYER Department: Room: [place] [address] Gender: M Rn Angiography: EV : 1995 Requested By: OLMAN VAZQUEZ Order Number: [id number] Reading MD: Jackson Kuhn Measurements Intervals Olga Rate: 104 P: 41 WA: 156 QRS: 41 QRSD: 102 T: 9 QT: 323 QTc: 426 Interpretive Statements SINUS TACHYCARDIA ST ELEVATION, LIKELY EARLY REPOLARIZATION ABNORMAL RHYTHM ECG Electronically Signed On 04-19-2016 19:03:32 EST by Jackson Kuhn
--- NOTE | 2016-04-20 02:16 | EDDOCDS ---
Physician Documentation [facility] Name: Mauricio Campoverde Age: 20 yrs Sex: Male : 1995 Arrival Date: 04/17/2016 Time: 21:29 Bed 5 Private MD: Disposition: 04/18/16 00:23 Hospitalization ordered by Nai Hahn for Inpatient Admission. Preliminary diagnosis are Urinary tract infection, site not specified, Fever, unspecified. - Bed requested for M PED. - Status is Inpatient Admission. af2 - Condition is Stable. - Problem is new. - Symptoms are unchanged. Historical: - Allergies: no known allergies; - Home Meds: 1. none - PMHx: none; - PSHx: none; - Social history: Smoking status: Patient states was never smoker of tobacco. No barriers to communication noted, The patient speaks fluent Thai. - Family history: Not pertinent. - : The pt / caregiver states he / she is not on anticoagulants. Home medication list is obtained from the patient. - Exposure Risk Screening:: None identified. Vital Signs: 04/17 21:30 BP 164 / 89; Pulse 124; Resp 18; Temp 100.4(O); Pulse Ox 99% on R/A; Weight 136.08 kg / lr2 300.01 lbs (R); Height 5 ft. 8 in. (172.72 cm) (R); Pain 3/10; 04/18 00:11 BP 103 / 51; Pulse 106; Resp 18 S; Temp 101(O); Pulse Ox 99% ; Pain 3/10; ajs 04/17 21:30 Body Mass Index 45.62 (136.08 kg, 172.72 cm) lr2 MDM: 04/17 22:20 Financial registration complete. [email or web address] 22:21 [facility] Payment Agreement was scanned into [employer] and attached to record. ks16 22:27 Undress patient appropriately for examination ordered. ck7 22:27 IV Saline Lock ordered. ck7 22:27 NS 0.9% 1000 ml IV at bolus once ordered. ck7 22:27 ketorolac 30 mg IVP once ordered. ck7 22:27 Ondansetron 4 mg IVP once ordered. ck7 22:28 Amylase Ordered. EDMS 22:28 Basic Metabolic Profile Ordered. EDMS 22:28 CBC with Diff Ordered. EDMS 22:28 Lipase Ordered. EDMS 22:28 Liver Profile Ordered. EDMS 22:28 Urine Culture Ordered. EDMS 22:29 NOTHING BY MOUTH+DIET ordered. EDMS 22:29 CT ABD & PELVIS: No Contrast Ordered. EDMS 22:44 URINALYSIS MANUAL Ordered. EDMS 22:45 MICROSCOPIC, URINE Ordered. EDMS 23:01 CBC with Diff Reviewed. ck7 23:01 URINALYSIS MANUAL Reviewed. ck7 23:01 MICROSCOPIC, URINE Reviewed. ck7 23:24 Basic Metabolic Profile Reviewed. ck7 23:24 Amylase Reviewed. ck7 23:24 Lipase Reviewed. ck7 23:24 Liver Profile Reviewed. ck7 04/18 00:12 Acetaminophen Tablet 975 mg PO once ordered. ck7 00:13 CT ABD & PELVIS: No Contrast Reviewed. ck7 00:20 GC & Chlamydia Amplification Ordered. EDMS 00:22 cefTRIAXone 1 grams IVPB once over 30 mins; dilute in 50mL of NS or D5W ordered. ck7 00:23 BED REQUEST+ADM ordered. EDMS 00:28 Admission / Observation Status ordered. EDMS 00:28 REGULAR DIET ordered. EDMS 00:28 BASIC METABOLIC PROFILE Ordered. EDMS 00:29 BLOOD CULTURES Ordered. EDMS 00:36 DIRECT TESSY Ordered. EDMS 00:37 HAPTOGLOBIN Ordered. EDMS 00:38 HEMOSIDERIN URINE Ordered. EDMS 00:45 MICROALBUMIN RANDOM Ordered. EDMS 00:46 CBC WITH DIFFERENTIAL Ordered. EDMS 00:47 LACTATE DEHYDROGENASE Ordered. EDMS 00:47 TOTAL IRON BINDING CAPACIT Ordered. EDMS 01:01 TRANSFERRIN Ordered. EDMS 01:14 SODIUM,RANDOM URINE Ordered. EDMS 01:14 CREATININE,RANDOM URINE Ordered. EDMS 01:24 CREATININE,RANDOM URINE Ordered. EDMS 01:24 SODIUM,RANDOM URINE Ordered. EDMS 08:58 T-Sheet-- Draft Copy was scanned into [employer] and attached to record. [facility] Administered Medications: 04/17 22:40 Drug: ketorolac 30 mg [ketorolac 30 mg/mL (1 mL) injection solution (1 mL)] Route: IVP; [facility] Site: left antecubital; 22:40 Drug: Ondansetron 4 mg Route: IVP; Site: left antecubital; [facility] 22:41 Drug: NS 0.9% 1000 ml Route: IV; Rate: bolus; Site: left antecubital; [facility] 04/18 00:40 Follow up: IV Status: Completed infusion; IV Intake: 1000ml ko2 00:21 Drug: Acetaminophen 975 mg [acetaminophen 325 mg tablet (3 tabs)] Route: PO; ko2 00:40 Drug: cefTRIAXone 1 grams [ceftriaxone 1 gram solution for injection] Route: IVPB; ko2 Infused Over: 30 mins; Site: left antecubital; Signatures: Dispatcher [employer] Tahira Paulson, RN RN Perez Palacios, RPA-C [id number] Erica Pacheco, Mathematics Department Chair Unit Shahida Galindo RN RN ko2 Heather DickensRN RN af2 Elizabeth Harmon, Reg Reg ks16 David, Inga Apodaca RN [facility] The chart was reviewed and I authenticate all verbal orders and agree with the evaluation and treatment provided.Corrections: (The following items were deleted from the chart) 04/17 22:44 22:28 URINALYSIS+LAB ordered. EDMS EDMS 22:55 22:49 MICROSCOPIC, URINE ordered. EDMS EDMS 04/18 00:42 00:37 RETICULOCYTE COUNT ordered. EDMS EDMS 00:44 00:29 CBC WITH DIFFERENTIAL ordered. EDMS EDMS 00:47 00:37 LACTATE DEHYDROGENASE ordered. EDMS EDMS 00:47 00:37 IRON (FE) ordered. EDMS EDMS 00:48 00:37 TOTAL IRON BINDING CAPACIT ordered. EDMS EDMS 01:01 00:37 TRANSFERRIN ordered. EDMS EDMS Attachments: 04/17 22:21 [facility] Payment Agreement ks04/18 08:58 T-Sheet-- Draft Copy [facility] Chart Complete MTDD
--- NOTE | 2016-04-20 02:16 | EDDOCDS ---
Nurse's Notes [facility] Name: Mauricio Campoverde Age: 20 yrs Sex: Male : 1995 Arrival Date: 04/17/2016 Time: 21:29 Bed 5 Private MD: Diagnosis: Urinary tract infection, site not specified;Fever, unspecified Presentation: 04/17 21:40 Presenting complaint: Patient states: Sick since yesterday--headache, urine dark, back mcp pain and lower abdominal pain. Risk factors: the patient reports not having a history of previous torsion. Adult Sepsis Screening: The patient does not have new or worsening altered mentation. Patient's respiratory rate is less than 22. Systolic blood pressure is greater than 100. Patient has a qSOFA score of 0- Negative Sepsis Screen. Suicide/Homicide risk assessment- the patient denies having any suicidal and/or homicidal ideations and does not present with any other emotional, behavioral or mental health complaints. Status: Patient is not a room service runner or dependent. Transition of care: patient was not received from another setting of care. 21:40 Acuity: SAVI Level 3 [facility] 21:40 Method Of Arrival: Walkin/Carried/Asstd [facility] Triage Assessment: 21:41 General: Appears uncomfortable, Behavior is cooperative. Pain: Location: back, right mcp lower quadrant and left lower quadrant Pain currently is 3 out of 10 on a pain scale. HIV screening NA for this visit Offered previously. Neurological: No deficits noted. Respiratory: Airway is patent Respiratory effort is even, unlabored. GI: Reports lower abdominal pain. : Reports dark urine. Derm: Skin is pink, warm & dry. Historical: - Allergies: no known allergies; - Home Meds: 1. none - PMHx: none; - PSHx: none; - Social history: Smoking status: Patient states was never smoker of tobacco. No barriers to communication noted, The patient speaks fluent Bermudian. - Family history: Not pertinent. - : The pt / caregiver states he / she is not on anticoagulants. Home medication list is obtained from the patient. - Exposure Risk Screening:: None identified. Screenin/26 00:42 Screening information is obtained from the patient. Fall risk: No risks identified. ko2 Assistance ADL's: requires no assistance with activities of daily living. Abuse/DV Screen: The patient / caregiver reports he/she is: not in a situation that causes fear, pain or injury. Nutritional screening: No deficits noted. Advance Directives: Currently, there is no health care proxy. There is no active DNR order. There is no living will. There is no Power of Associate Director Qa. home support is adequate. Assessment: 04/17 22:30 General: Appears in no apparent distress, comfortable, Behavior is appropriate for age, ko2 cooperative. Pain: Location: back Pain. Neurological: Level of Consciousness is awake, alert, Oriented to person, place, time. Respiratory: Airway is patent Respiratory effort is even, unlabored. GI: Abdomen is obese, Bowel sounds present X 4 quads. Abd is soft and non tender. : Urine is blood tinged. Derm: Skin is normal. 23:30 General: Appears in no apparent distress, comfortable, Behavior is appropriate for age, ko2 cooperative. Pain: Location: back Pain currently is 4 out of 10 on a pain scale. Neurological: Level of Consciousness is awake, alert. Respiratory: Airway is patent Respiratory effort is even, unlabored. Derm: Skin is normal. 04/18 00:30 General: Appears in no apparent distress, comfortable, Behavior is appropriate for age, ko2 cooperative. Neurological: Level of Consciousness is awake, alert. Respiratory: Airway is patent Respiratory effort is even, unlabored. Derm: Skin is normal. Musculoskeletal: Range of motion intact in all extremities. 01:11 General: report given to peds at this time. resp easy and unlabored. hospitalist at af2 bedside. will continue to monitor. . Vital Signs: 04/17 21:30 BP 164 / 89; Pulse 124; Resp 18; Temp 100.4(O); Pulse Ox 99% on R/A; Weight 136.08 kg lr2 (R); Height 5 ft. 8 in. (172.72 cm) (R); Pain 3/10; 04/18 00:11 BP 103 / 51; Pulse 106; Resp 18 S; Temp 101(O); Pulse Ox 99% ; Pain 3/10; ajs 04/17 21:30 Body Mass Index 45.62 (136.08 kg, 172.72 cm) lr2 Vitals: 04/17 21:30 Log In Time: April 17, 2016 at 21:29. lr2 ED Course: 21:30 Patient visited by Jamilah Man. lr2 21:30 Patient moved to Waiting lr2 21:32 Patient moved to Pre RCE lr2 21:41 Triage Initiated mcp 21:42 Patient visited by Tahira Martin, JOE. mcp 21:42 Patient moved to Triage 1 mcp 22:11 Perez Roman [facility]C [facility] ck7 22:11 Raf Roth DO is Attending Physician. ck7 22:11 Patient visited by Perez Roman RPA-C. ck7 22:21 [facility] Payment Agreement was scanned into [employer] and attached to record. ks16 22:24 Shahida Yarbrough,RN is Primary Nurse. kmg1 22:24 Patient moved to I5 / M5 kmg1 22:41 Amylase Sent. ko2 22:41 Basic Metabolic Profile Sent. ko2 22:41 CBC with Diff Sent. ko2 22:41 Lipase Sent. ko2 22:41 Liver Profile Sent. ko2 22:41 Urine Culture Sent. ko2 22:42 Patient visited by Inga Sommers RN. [facility] 23:00 Inserted saline lock: 20 gauge in left antecubital area and blood collected. The ko2 patient tolerated the procedure well. 23:24 Patient visited by Perez Roman RPA-C. ck7 02 00:05 Patient visited by Perez Roman RPA-C. ck7 00:12 CT ABD & PELVIS: No Contrast Returned. EDMS 00:23 Nai Hahn is Hospitalizing Provider. ck7 00:23 GC & Chlamydia Amplification Sent. ko2 00:28 Heather Dickens RN is Primary Nurse. jlm 00:28 Patient moved to 5 jl 00:43 The patient / caregiver is instructed regarding the plan of care and ED course. ko2 01:12 No procedures done that require assistance. af2 01:13 Patient visited by Heather Dickens RN. af2 08:58 T-Sheet-- Draft Copy was scanned into [employer] and attached to record. [facility] Administered Medications: 04/17 22:40 Drug: ketorolac 30 mg [ketorolac 30 mg/mL (1 mL) injection solution (1 mL)] Route: IVP; [facility] Site: left antecubital; 22:40 Drug: Ondansetron 4 mg Route: IVP; Site: left antecubital; [facility] 22:41 Drug: NS 0.9% 1000 ml Route: IV; Rate: bolus; Site: left antecubital; [facility] 04/18 00:40 Follow up: IV Status: Completed infusion; IV Intake: 1000ml ko2 00:21 Drug: Acetaminophen 975 mg [acetaminophen 325 mg tablet (3 tabs)] Route: PO; ko2 00:40 Drug: cefTRIAXone 1 grams [ceftriaxone 1 gram solution for injection] Route: IVPB; ko2 Infused Over: 30 mins; Site: left antecubital; Intake: 00:40 IV: 1000.00ml; Total: 1000.00ml. ko2 Order Results: Lab Order: Amylase; SPEC' 04/17/16 22:36 Test: AMYLASE; Value: 57; Range: 25-115; Units: U/L; Status: F Lab Order: Basic Metabolic Profile; SPEC' 04/17/16 22:36 Test: GLUCOSE, FASTING; Value: 100; Range: 70-105; Units: MG/DL; Status: F Test: BLOOD UREA NITROGEN; Value: 14; Range: 7-18; Units: MG/DL; Status: F Test: CREATININE FOR GFR; Value: 1.03; Range: 0.70-1.30; Units: MG/DL; Status: F Test: SODIUM LEVEL; Value: 140; Range: 136-145; Units: MEQ/L; Status: F Test: POTASSIUM SERUM; Value: 4.2; Range: 3.5-5.1; Units: MEQ/L; Status: F Test: CHLORIDE LEVEL; Value: 102; Range: 98-107; Units: MEQ/L; Status: F Test: CARBON DIOXIDE LEVEL; Value: 29; Range: 21-32; Units: MEQ/L; Status: F Test: ANION GAP; Value: 9; Range: 8-16; Units: MEQ/L; Status: F Test: CALCIUM LEVEL; Value: 8.4; Range: 8.5-10.1; Abnormal: Below low normal; Units: MG/DL; Status: F Lab Order: CBC with Diff; SPEC' 04/17/16 22:36 Test: WHITE BLOOD COUNT; Value: 5.8; Range: 4.0-10.0; Units: K/mm3; Status: F Test: RED BLOOD COUNT; Value: 5.00; Range: 4.30-6.10; Units: M/mm3; Status: F Test: HEMOGLOBIN; Value: 14.5; Range: 14.0-18.0; Units: g/dl; Status: F Test: HEMATOCRIT; Value: 42.7; Range: 42.0-52.0; Units: %; Status: F Test: MEAN CORPUSCULAR VOLUME; Value: 85.3; Range: 80.0-96.0; Units: fl; Status: F Test: MEAN CORPUSCULAR HEMOGLOBIN; Value: 28.9; Range: 27.0-33.0; Units: pg; Status: F Test: MEAN CORPUSCULAR HGB CONC; Value: 33.9; Range: 32.0-36.5; Units: g/dl; Status: F Test: RED CELL DISTRIBUTION WIDTH; Value: 12.3; Range: 11.5-14.5; Units: %; Status: F Test: PLATELET COUNT, AUTOMATED; Value: 246; Range: 150-450; Units: k/mm3; Status: F Test: NEUTROPHILS %; Value: 76.4; Range: 36.0-66.0; Abnormal: Above high normal; Units: %; Status: F Test: LYMPH %; Value: 11.4; Range: 24.0-44.0; Abnormal: Below low normal; Units: %; Status: F Test: MONO %; Value: 8.2; Range: 0.0-5.0; Abnormal: Above high normal; Units: %; Status: F Test: EOS %; Value: 0.8; Range: 0.0-3.0; Units: %; Status: F Test: BASO %; Value: 0.7; Range: 0.0-1.0; Units: %; Status: F Test: LARGE UNSTAINED CELL %; Value: 2.6; Range: 0.0-4.0; Units: %; Status: F Test: NEUTROPHILS #; Value: 4.5; Range: 1.8-7.7; Units: K/mm3; Status: F Test: LYMPH #; Value: 0.7; Range: 1.5-6.5; Abnormal: Below low normal; Units: K/mm3; Status: F Test: MONO #; Value: 0.5; Range: 0.0-0.8; Units: K/mm3; Status: F Test: EOS #; Value: 0.0; Range: 0.0-0.50; Units: K/mm3; Status: F Test: BASO #; Value: 0.0; Range: 0.0-0.2; Units: K/mm3; Status: F Test: LARGE UNSTAINED CELL #; Value: 0.2; Range: 0.0-0.4; Units: K/mm3; Status: F Lab Order: Lipase; [facility] 04/17/16 22:36 Test: LIPASE; Value: 103; Range: 73-393; Units: U/L; Status: F Lab Order: Liver Profile; [facility] 04/17/16 22:36 Test: AST/SGOT; Value: 32; Range: 15-37; Units: U/L; Status: F Test: ALT/SGPT; Value: 67; Range: 12-78; Units: U/L; Status: F Test: ALKALINE PHOSPHATASE; Value: 79; Range: 45-117; Units: U/L; Status: F Test: BILIRUBIN,TOTAL; Value: 0.5; Range: 0.2-1.0; Units: MG/DL; Status: F Test: BILIRUBIN,DIRECT; Value: 0.1; Range: 0.0-0.2; Units: MG/DL; Status: F Test: TOTAL PROTEIN; Value: 7.2; Range: 6.4-8.2; Units: GM/DL; Status: F Test: ALBUMIN; Value: 3.9; Range: 3.2-5.2; Units: GM/DL; Status: F Test: ALBUMIN/GLOBULIN RATIO; Value: 1.18; Range: 1.00-1.93; Status: F Lab Order: URINALYSIS MANUAL; [facility] 04/17/16 22:36 Test: APPEARANCE, URINE MANUAL; Value: CLOUDY; Range: CLEAR; Abnormal: Above high normal; Status: F Test: COLOR, URINE MANUAL; Value: BROWN; Range: YELLOW; Abnormal: Above high normal; Status: F Test: PH,URINE MAN; Value: 5.5; Range: 5.0 - 9.0; Units: UNITS; Status: F Test: SPECIFIC GRAVITY,URINE MANUAL; Value: 1.020; Range: 1.002-1.035; Status: F Test: PROTEIN, URINE MANUAL; Value: 3+; Range: NEGATIVE; Abnormal: Above high normal; Units: mg/dL; Status: F Test: GLUCOSE, URINE (UA) MANUAL; Value: NEGATIVE; Range: NEGATIVE; Units: mg/dL; Status: F Test: KETONE, URINE MANUAL; Value: NEGATIVE; Range: NEGATIVE; Units: mg/dL; Status: F Test: UROBILINOGEN, URINE MANUAL; Value: NORMAL; Range: NORMAL; Units: mg/dl; Status: F Test: BILIRUBIN, URINE MANUAL; Value: NEGATIVE; Range: NEGATIVE; Status: F Test: NITRITE, URINE MANUAL; Value: NEGATIVE; Range: NEGATIVE; Status: F Test: LEUKOCYTE ESTERASE, URINE MAN; Value: POSITIVE; Range: NEGATIVE; Abnormal: Above high normal; Status: F Test: BLOOD URINE MANUAL; Value: POSITIVE; Range: NEGATIVE; Abnormal: Above high normal; Status: F Lab Order: MICROSCOPIC, URINE; SPEC'M 04/17/16 22:36 Test: WBC, URINE; Value: 40-50; Range: 0-3; Units: /hpf; Status: F Test: RBC, URINE; Value: TNTC; Range: 0-3; Abnormal: Above high normal; Units: /hpf; Status: F Test: SQUAMOUS EPITHELIAL CELL URINE; Value: SMALL AMOUNT; Range: SMALL AMT; Units: /hpf; Status: F Test: BACTERIA, URINE; Value: SMALL AMOUNT; Range: NONE; Abnormal: Above high normal; Status: F Test: HYALINE CAST, URINE; Value: NONE SEEN; Range: 0-1; Units: /lpf; Status: F Test: MICROSCOPIC EXAM; Status: I Test: WHITE BLOOD CELL CAST, URINE; Value: 0-1; Range: NONE; Units: /lpf; Status: F Test: MUCUS, URINE; Value: SMALL AMOUNT; Range: NEGATIVE; Abnormal: Above high normal; Status: F Test: AMORPHOUS SEDIMENT, URINE; Value: MOD AMOUNT; Range: NEGATIVE; Abnormal: Above high normal; Status: F Test: MICROSCOPIC EXAM; Value: PERFORMED; Status: F Lab Order: RETICULOCYTE COUNT; SPEC'M 04/17/16 22:36 Test: RETICULOCYTE % [id number]; Value: 2.25; Range: 0.5-1.5; Abnormal: Above high normal; Units: %; Status: F Test: RETICULOCYTE ABSOLUTE [id number]; Value: 115; Range: 17-77; Abnormal: Above high normal; Units: x10(9)/L; Status: F Test: RETIC HEMOGLOBIN CONTENT CHr; Value: 29.7; Range: 24-36; Units: PG; Status: F Lab Order: LACTATE DEHYDROGENASE; SPEC'M 04/17/16 22:36 Test: LDH LACTATE DEHYDROGENASE; Value: 247; Range: 87-241; Abnormal: Above high normal; Units: U/L; Status: F Lab Order: TOTAL IRON BINDING CAPACIT; SPEC'M 04/17/16 22:36 Test: IRON (FE); Value: 29; Range: 65-175; Abnormal: Below low normal; Units: UG/DL; Status: F Test: TOTAL IRON BINDING CAPACITY; Value: 335; Range: 250-450; Units: UG/DL; Status: F Test: PERCENT SATURATION; Value: 8.7; Range: 19.7-37.4; Abnormal: Below low normal; Units: %; Status: F Radiology Order: CT ABD & PELVIS: No Contrast Test: CT ABD & PELVIS: No Contrast REASON FOR EXAMINATION: Renal colic; ; CT of the abdomen and pelvis without contrast; Clinical history: pain.; Technique: Multiple axial CT images were obtained from the base of the lungs to the floor of the pelv; is utilizing 5 mm axial slices without administration of contrast. Coronal and sagittal reconstructio; ns were also obtained.; Comparison: None.; Chest: The visualized lung bases are clear.; Abdomen: The kidneys are normal in size bilaterally. There is no evidence of hydronephrosis or nephro; lithiasis. The liver, spleen, pancreas, gallbladder and adrenal glands are unremarkable. The aorta de; monstrates normal caliber and contour. There is no abdominal lymphadenopathy or ascites.; Pelvis: The bowel is unremarkable, with no obstructive or inflammatory changes. The appendix is syd; l. The urinary bladder is within normal limits. There is no pelvic lymphadenopathy or ascites. The ot; her pelvic structures appear unremarkable.; Bones: There are no suspicious osseous abnormalities seen.; Impression: Unremarkable CT examination of the abdomen and pelvis.; ; Outcome: 00:23 Decision to Hospitalize by Provider. ck7 00:43 CT Study completed. ko2 01:12 Discharge Assessment: Patient awake, alert and oriented x 3. No cognitive and/or af2 functional deficits noted. Patient verbalized understanding of disposition instructions. patient administered narcotics - no. The following High Risk Discharge criteria are identified: None. Discharged to home ambulatory. Condition: stable. Property :Personal belongings accompany Pt. 01:14 Patient left the ED. af2 Signatures: Dispatcher [employer] EDMS Christine Lane, RN RN kmg1 Tahira Martin RN RN Edyta Tim JaneRN RN [facility] Perez Roman, RPA-C RPA-Cck7 Erica Pacheco, Product Line Manager Unit Shahida Galindo RN RN ko2 Heather DickensRN RN af2 Elizabeth Harmon, Reg Reg ks16 [facility], Holly Man, Jamilah 2 Corrections: (The following items were deleted from the chart) 04/17 22:44 22:41 URINALYSIS+LAB sent. ko2 EDMS Chart Complete MTDD
--- NOTE | 2016-04-20 02:17 | EDDOCDS ---
Physician Documentation [facility] Name: Mauricio Campoverde Age: 20 yrs Sex: Male : 1995 Arrival Date: 04/17/2016 Time: 21:29 Bed 5 Private MD: Disposition: 04/18/16 00:23 Hospitalization ordered by Nai Hahn for Inpatient Admission. Preliminary diagnosis are Urinary tract infection, site not specified, Fever, unspecified. - Bed requested for M PED. - Status is Inpatient Admission. af2 - Condition is Stable. - Problem is new. - Symptoms are unchanged. Historical: - Allergies: no known allergies; - Home Meds: 1. none - PMHx: none; - PSHx: none; - Social history: Smoking status: Patient states was never smoker of tobacco. No barriers to communication noted, The patient speaks fluent Italian. - Family history: Not pertinent. - : The pt / caregiver states he / she is not on anticoagulants. Home medication list is obtained from the patient. - Exposure Risk Screening:: None identified. Vital Signs: 04/17 21:30 BP 164 / 89; Pulse 124; Resp 18; Temp 100.4(O); Pulse Ox 99% on R/A; Weight 136.08 kg / lr2 300.01 lbs (R); Height 5 ft. 8 in. (172.72 cm) (R); Pain 3/10; 04/18 00:11 BP 103 / 51; Pulse 106; Resp 18 S; Temp 101(O); Pulse Ox 99% ; Pain 3/10; ajs 04/17 21:30 Body Mass Index 45.62 (136.08 kg, 172.72 cm) lr2 MDM: 04/17 22:20 Financial registration complete. ks16 22:21 [facility] Payment Agreement was scanned into [employer] and attached to record. ks16 22:27 Undress patient appropriately for examination ordered. ck7 22:27 IV Saline Lock ordered. ck7 22:27 NS 0.9% 1000 ml IV at bolus once ordered. ck7 22:27 ketorolac 30 mg IVP once ordered. ck7 22:27 Ondansetron 4 mg IVP once ordered. ck7 22:28 Amylase Ordered. EDMS 22:28 Basic Metabolic Profile Ordered. EDMS 22:28 CBC with Diff Ordered. EDMS 22:28 Lipase Ordered. EDMS 22:28 Liver Profile Ordered. EDMS 22:28 Urine Culture Ordered. EDMS 22:29 NOTHING BY MOUTH+DIET ordered. EDMS 22:29 CT ABD & PELVIS: No Contrast Ordered. EDMS 22:44 URINALYSIS MANUAL Ordered. EDMS 22:45 MICROSCOPIC, URINE Ordered. EDMS 23:01 CBC with Diff Reviewed. ck7 23:01 URINALYSIS MANUAL Reviewed. ck7 23:01 MICROSCOPIC, URINE Reviewed. ck7 23:24 Basic Metabolic Profile Reviewed. ck7 23:24 Amylase Reviewed. ck7 23:24 Lipase Reviewed. ck7 23:24 Liver Profile Reviewed. ck7 04/18 00:12 Acetaminophen Tablet 975 mg PO once ordered. ck7 00:13 CT ABD & PELVIS: No Contrast Reviewed. ck7 00:20 GC & Chlamydia Amplification Ordered. EDMS 00:22 cefTRIAXone 1 grams IVPB once over 30 mins; dilute in 50mL of NS or D5W ordered. ck7 00:23 BED REQUEST+ADM ordered. EDMS 00:28 Admission / Observation Status ordered. EDMS 00:28 REGULAR DIET ordered. EDMS 00:28 BASIC METABOLIC PROFILE Ordered. EDMS 00:29 BLOOD CULTURES Ordered. EDMS 00:36 DIRECT TESSY Ordered. EDMS 00:37 HAPTOGLOBIN Ordered. EDMS 00:38 HEMOSIDERIN URINE Ordered. EDMS 00:45 MICROALBUMIN RANDOM Ordered. EDMS 00:46 CBC WITH DIFFERENTIAL Ordered. EDMS 00:47 LACTATE DEHYDROGENASE Ordered. EDMS 00:47 TOTAL IRON BINDING CAPACIT Ordered. EDMS 01:01 TRANSFERRIN Ordered. EDMS 01:14 SODIUM,RANDOM URINE Ordered. EDMS 01:14 CREATININE,RANDOM URINE Ordered. EDMS 01:24 CREATININE,RANDOM URINE Ordered. EDMS 01:24 SODIUM,RANDOM URINE Ordered. EDMS 08:58 T-Sheet-- Draft Copy was scanned into [employer] and attached to record. [facility] Administered Medications: 04/17 22:40 Drug: ketorolac 30 mg [ketorolac 30 mg/mL (1 mL) injection solution (1 mL)] Route: IVP; [facility] Site: left antecubital; 22:40 Drug: Ondansetron 4 mg Route: IVP; Site: left antecubital; [facility] 22:41 Drug: NS 0.9% 1000 ml Route: IV; Rate: bolus; Site: left antecubital; [facility] 04/18 00:40 Follow up: IV Status: Completed infusion; IV Intake: 1000ml ko2 00:21 Drug: Acetaminophen 975 mg [acetaminophen 325 mg tablet (3 tabs)] Route: PO; ko2 00:40 Drug: cefTRIAXone 1 grams [ceftriaxone 1 gram solution for injection] Route: IVPB; ko2 Infused Over: 30 mins; Site: left antecubital; Signatures: Dispatcher [employer] Tahira Paulson, RN RN Perez Palacios, RPA-C RPA-Cck7 Erica Pacheco, Assembler Tractor Unit Shahida Galindo RN RN ko2 Heather DickensRN RN af2 Elizabeth Harmon, Reg Reg ks16 David, Inga Apodaca RN [facility] The chart was reviewed and I authenticate all verbal orders and agree with the evaluation and treatment provided.Corrections: (The following items were deleted from the chart) 04/17 22:44 22:28 URINALYSIS+LAB ordered. EDMS EDMS 22:55 22:49 MICROSCOPIC, URINE ordered. EDMS EDMS 04/18 00:42 00:37 RETICULOCYTE COUNT ordered. EDMS EDMS 00:44 00:29 CBC WITH DIFFERENTIAL ordered. EDMS EDMS 00:47 00:37 LACTATE DEHYDROGENASE ordered. EDMS EDMS 00:47 00:37 IRON (FE) ordered. EDMS EDMS 00:48 00:37 TOTAL IRON BINDING CAPACIT ordered. EDMS EDMS 01:01 00:37 TRANSFERRIN ordered. EDMS EDMS Attachments: 04/17 22:21 [facility] [place] Agreement ks04/18 08:58 T-Sheet-- Draft Copy [facility] Chart Complete MTDD
[2016-04-20] MEDS ORDERED: ASPIRIN 81 MG CHEW TABLET PO SCH (09:00)
[2016-04-20] MEDS ORDERED: ATORVASTATIN 20 MG TAB PO SCH (21:00)
== END 2016-04-19 16:52 | disposition short-term general hospital (02) | DRG 463 ==
LOC: M ED 21:29 → M ED INP 04-18 00:25 → M PCU 04-18 01:14 → M PED 04-18 01:20 → OBSVTOIN 04-19 10:48 → M PCU 04-19 15:52
PROVIDERS: ADMIT General Practice; ATTEND Internal Medicine
DX: N39.0 Urinary tract infection, site not specified (principal); I21.3 ST elevation (STEMI) myocardial infarction of unspecified site; I31.9 Disease of pericardium, unspecified; I51.4 Myocarditis, unspecified; E66.9 Obesity, unspecified; R80.9 Proteinuria, unspecified; G44.209 Tension-type headache, unspecified, not intractable; Z87.440 Personal history of urinary (tract) infections; Z80.9 Family history of malignant neoplasm, unspecified; Z83.79 Family history of other diseases of the digestive system

== ENCOUNTER → 2016-09-21 | Outpatient (REF) | payer OTHER ==
[~2016-09-21] MED LIST: ASPI81TA PO; ATOR1TAB21 PO; LOVE0.8I3 SC
[2016-09-21 18:51] LABS: COMPLEMENT C3 156 MG/DL (90-180); COMPLEMENT C4 41.4 MG/DL (10-40)
[2016-09-22 10:28] LABS: HEPATITIS B SURFACE ANTIBODY NEGATIVE (POSITIVE)
== END ==
LOC: M LAB REF 17:01
PROVIDERS: ATTEND Internal Medicine Nephrology
DX: N00.9 Acute nephritic syndrome with unspecified morphologic changes (principal)

== ENCOUNTER → 2016-09-30 | Outpatient (REF) | payer OTHER | LOC: M LAB REF 12:55 | PROVIDERS: ATTEND Internal Medicine Nephrology | DX: N00.9 Acute nephritic syndrome with unspecified morphologic changes (principal) ==

== ENCOUNTER → 2016-10-26 | Outpatient (REF) | payer OTHER ==
[2016-10-26 13:20] LABS: FREE T4 1.06 NG/DL (0.78-1.33)
[2016-10-26 14:19] LABS: BACTERIA, URINE NONE SEEN; HYALINE CAST, URINE NONE SEEN /lpf (0-1); MICROSCOPIC EXAM PERFORMED; SQUAMOUS EPITHELIAL CELL URINE NONE SEEN /hpf (SMALL AMT)
== END ==
LOC: M LAB REF 12:41
PROVIDERS: ATTEND Internal Medicine Nephrology
DX: N00.9 Acute nephritic syndrome with unspecified morphologic changes (principal)

== ENCOUNTER → 2016-11-01 | Outpatient (CLI) | payer OTHER ==
[2016-11-01 11:39] LABS: ANION GAP 8 MEQ/L (8-16); BLOOD UREA NITROGEN 13 MG/DL (7-18); CALCIUM LEVEL 9.4 MG/DL (8.5-10.1); CARBON DIOXIDE LEVEL 29 MEQ/L (21-32); CHLORIDE LEVEL 104 MEQ/L (98-107); CHOLESTEROL LEVEL 161 MG/DL (<200); CREATININE FOR GFR 0.69 MG/DL (0.70-1.30); GLUCOSE, FASTING 90 MG/DL (70-105); POTASSIUM SERUM 4.5 MEQ/L (3.5-5.1); SODIUM LEVEL 141 MEQ/L (136-145); TRIGLYCERIDES LEVEL 223 MG/DL (<150)
== END ==
LOC: M LAB 09:45
PROVIDERS: ATTEND Family Medicine
DX: I10 Essential (primary) hypertension (principal); Z13.220 Encounter for screening for lipoid disorders

== ENCOUNTER → 2016-12-31 | Outpatient (REF) | payer OTHER | LOC: M LAB REF 13:07 | PROVIDERS: ATTEND Internal Medicine Nephrology | DX: N03.0 Chronic nephritic syndrome with minor glomerular abnormality (principal) ==

== ENCOUNTER → 2017-04-29 | Outpatient (REF) | payer OTHER ==
[2017-04-29 18:53] LABS: URINE TOTAL PROTEIN 84.9 MG/DL (0-12)
[2017-04-29 21:48] LABS: TOTAL PROTEIN 24 HOUR URINE 1613.1 MG/24HR (50-150); TOTAL VOLUME, URINE 1900 ML
== END ==
LOC: M LAB REF 16:56
DX: N03.0 Chronic nephritic syndrome with minor glomerular abnormality (principal)

== ENCOUNTER → 2017-07-05 | Outpatient (REF) | payer OTHER ==
[2017-07-05 14:01] LABS: FOLATE 12.6 NG/ML; VITAMIN B12 LEVEL 400 PG/ML
[2017-07-05 14:13] LABS: FERRITIN 151 NG/ML (26-388); IRON (FE) 57 UG/DL (65-175); PERCENT SATURATION 16.9 % (19.7-50.0); TOTAL IRON BINDING CAPACITY 337 UG/DL (250-450)
== END ==
LOC: M LAB REF 13:21
DX: D64.9 Anemia, unspecified (principal)
CPT/HCPCS: 82746

== ENCOUNTER → 2018-02-22 | Outpatient (CLI) | payer BC, OTHER ==
[~2018-02-22] MED LIST changes: +ASPI81CH40 PO; -ASPI81TA PO
[2018-02-22 09:57] LABS: BLOOD UREA NITROGEN 17 MG/DL (7-18); CALCIUM LEVEL 9.1 MG/DL (8.5-10.1); CARBON DIOXIDE LEVEL 27 MEQ/L (21-32); CHLORIDE LEVEL 105 MEQ/L (98-107); CREATININE FOR GFR 0.67 MG/DL (0.70-1.30); GLOMERULAR FILTRATION RATE > 60.0 (>60); GLUCOSE, FASTING 105 MG/DL (70-100); POTASSIUM SERUM 4.2 MEQ/L (3.5-5.1); SODIUM LEVEL 141 MEQ/L (136-145)
== END ==
LOC: M LAB 08:43
PROVIDERS: ATTEND Family Medicine
DX: Z68.43 Body mass index [BMI] 50.0-59.9, adult (principal); I10 Essential (primary) hypertension

== ENCOUNTER → 2018-02-24 | Outpatient (REF) | payer OTHER ==
[2018-02-24 12:16] LABS: HEMOGLOBIN A1c 5.7 %
== END ==
LOC: M SFHCCLAY 09:00
PROVIDERS: ATTEND Family Medicine
DX: R73.01 Impaired fasting glucose (principal)

== ENCOUNTER → 2018-05-03 | Outpatient (REF) | payer OTHER | LOC: M SFHCCLAY 11:34 | PROVIDERS: ATTEND Family Medicine | DX: I10 Essential (primary) hypertension (principal); Z53.9 Procedure and treatment not carried out, unspecified reason ==

== ENCOUNTER → 2018-07-18 | Outpatient (REF) | payer OTHER ==
[~2018-07-18] MED LIST changes: +ASPI81CH36 PO; -ASPI81CH40 PO
[2018-07-18 18:22] LABS: BASO # 0.1 10^3/uL (0.0-0.2); BASO % 0.6 % (0.0-1.0); EOS # 0.2 10^3/uL (0.0-0.50); EOS % 1.9 % (0.0-3.0); HEMATOCRIT 45.8 % (42.0-52.0); HEMOGLOBIN 15.1 g/dl (13.5-17.5); LYMPH # 2.3 10^3/uL (1.5-6.5); LYMPH % 25.1 % (24.0-44.0); MEAN CORPUSCULAR HEMOGLOBIN 29.4 pg (27.0-33.0); MEAN CORPUSCULAR VOLUME 89.1 fl (80.0-96.0); MONO # 0.9 10^3/uL (0.0-0.8); MONO % 9.6 % (0.0-5.0); NEUTROPHILS # 5.8 10^3/uL (1.8-7.7); NEUTROPHILS % 62.3 % (36.0-66.0); PLATELET COUNT, AUTOMATED 360 10^3/uL (150-450); RED BLOOD COUNT 5.14 10^6/uL (4.30-6.10); WHITE BLOOD COUNT 9.3 10^3/uL (4.0-10.0)
[2018-07-19 19:11] LABS: TOTAL PROTEIN,RANDOM URINE 77.5 MG/DL (0.0-12.0)
== END ==
LOC: M LAB REF 17:09
PROVIDERS: ATTEND Internal Medicine Nephrology
DX: D50.9 Iron deficiency anemia, unspecified (principal)

== ENCOUNTER → 2019-02-27 | Outpatient (REF) | payer OTHER ==
[2019-02-28 14:26] LABS: TOTAL PROTEIN,RANDOM URINE 175.4 MG/DL (0.0-12.0)
== END ==
LOC: M LAB REF 13:04
PROVIDERS: ATTEND Internal Medicine Nephrology
DX: N03.0 Chronic nephritic syndrome with minor glomerular abnormality (principal)

== ENCOUNTER → 2019-02-27 | Outpatient (REF) | payer OTHER ==
[2019-02-27 18:04] LABS: ALBUMIN 3.6 GM/DL (3.2-5.2); BLOOD UREA NITROGEN 14 MG/DL (7-18); CALCIUM LEVEL 9.3 MG/DL (8.5-10.1); CARBON DIOXIDE LEVEL 25 MEQ/L (21-32); CHLORIDE LEVEL 107 MEQ/L (98-107); CREATININE FOR GFR 0.94 MG/DL (0.70-1.30); GLOMERULAR FILTRATION RATE > 60.0 (>60); GLUCOSE, FASTING 113 MG/DL (70-100); PHOSPHORUS LEVEL 2.6 MG/DL (2.5-4.9); SODIUM LEVEL 140 MEQ/L (136-145); URIC ACID 6.6 MG/DL (3.5-7.2)
== END ==
LOC: M LAB REF 17:31
PROVIDERS: ATTEND Internal Medicine Nephrology
DX: E79.0 Hyperuricemia without signs of inflammatory arthritis and tophaceous disease (principal); N03.0 Chronic nephritic syndrome with minor glomerular abnormality

== ENCOUNTER 2020-01-18 09:33 | Emergency (ER) | payer BC, OTHER ==
[~2020-01-18] VITALS: Ht 177.8 cm; Wt 161.2 kg
[~2020-01-18 09:33] MED LIST changes: +ASPI81CH32 PO; -ASPI81CH36 PO
[2020-01-18] MEDS ORDERED: ALLO10TA PO (09:53)
[2020-01-18] MEDS ORDERED: METO1TAB33 PO (09:53)
[2020-01-18] MEDS ORDERED: OMEP40CA97 PO (09:53)
[2020-01-18] MEDS ORDERED: LOSA50TA88 PO (09:53)
[2020-01-18] MEDS ORDERED: FERR32TA (09:53)
[2020-01-18] MEDS ORDERED: NS 1,000 ML IV ONE (10:15)
[2020-01-18 10:58] LABS: BASO # 0.1 10^3/uL (0.0-0.2); BASO % 0.7 % (0.0-1.0); EOS # 0.2 10^3/uL (0.0-0.5); EOS % 1.9 % (0.0-3.0); HEMATOCRIT 47.4 % (42.0-52.0); HEMOGLOBIN 15.4 g/dl (13.5-17.5); LYMPH # 2.7 10^3/uL (1.5-5.0); LYMPH % 26.2 % (24.0-44.0); MEAN CORPUSCULAR HEMOGLOBIN 28.7 pg (27.0-33.0); MEAN CORPUSCULAR HGB CONC 32.5 g/dl (32.0-36.5); MEAN CORPUSCULAR VOLUME 88.4 fl (80.0-96.0); MONO # 0.9 10^3/uL (0.0-0.8); MONO % 8.3 % (0.0-5.0); NEUTROPHILS # 6.5 10^3/uL (1.5-8.5); NEUTROPHILS % 62.3 % (36.0-66.0); PLATELET COUNT, AUTOMATED 360 10^3/uL (150-450); RED BLOOD COUNT 5.36 10^6/uL (4.30-6.10); WHITE BLOOD COUNT 10.5 10^3/uL (4.0-10.0)
[2020-01-18 11:18] LABS: ALBUMIN 3.8 GM/DL (3.2-5.2); ALT/SGPT 59 U/L (12-78); AMYLASE 57 U/L (25-115); BILIRUBIN,DIRECT 0.1 MG/DL (0.0-0.2); BILIRUBIN,TOTAL 0.3 MG/DL (0.2-1.0); BLOOD UREA NITROGEN 15 MG/DL (7-18); CALCIUM LEVEL 9.4 MG/DL (8.5-10.1); CARBON DIOXIDE LEVEL 29 MEQ/L (21-32); CHLORIDE LEVEL 104 MEQ/L (98-107); CREATININE FOR GFR 0.84 MG/DL (0.70-1.30); GLOMERULAR FILTRATION RATE > 60.0 (>60); GLUCOSE, FASTING 65 MG/DL (70-100); LIPASE 81 U/L (73-393); POTASSIUM SERUM 4.2 MEQ/L (3.5-5.1); SODIUM LEVEL 139 MEQ/L (136-145); TOTAL PROTEIN 7.5 GM/DL (6.4-8.2)
[2020-01-18] MEDS ORDERED: DEXTROSE 50% 50 ML SYRINGE IV STA (11:19)
[2020-01-18] MEDS ORDERED: ISOVUE-370 76% 100ML VIAL As Ordered ONE (11:22)
--- NOTE | 2020-01-18 11:57 | REP ---
INDICATION: hx igA nephrop-rlq pain - ro stone and appy. COMPARISON: None TECHNIQUE: Axial precontrast and contrast-enhanced images from the lung bases to the pubic symphysis using 100 cc Isovue 370 intravenous contrast material. Coronal and sagittal reformations obtained. This CT examination was performed using the following dose reduction techniques: Automated exposure control, adjustment of mA and/or kv according to the patient's size, and the use of iterative reconstruction technique. FINDINGS: Fatty infiltration to the liver noted without significant focal hepatic lesion. Spleen, pancreas, gallbladder, bilateral adrenal glands and kidneys are normal. No evidence for hydronephrosis, perinephric stranding, intrarenal or obstructing ureteral calculi. The enteric system including stomach, small, and large bowel appears normal. No evidence for obstruction or acute inflammatory process. Normal terminal ileum and appendix are identified in the right lower quadrant. Few mildly prominent lymph nodes in the right lower quadrant raise the possibility of mesenteric adenitis. Pelvis demonstrates normal bladder and age-appropriate prostate/seminal vesicles. No ascites. No free air. No retroperitoneal adenopathy. Abdominal aorta and vasculature appear normal. Musculoskeletal structures are intact and without acute osseous abnormality. IMPRESSION: 1. Possible mesenteric adenitis. 2. Hepatosteatosis. 3. Otherwise normal pre and postcontrast CT of the abdomen and pelvis. <Electronically signed by Farhat Hernandez > 01/18/20 1432
[2020-01-18 13:01] VITALS: BP 167/114
--- NOTE | 2020-01-21 11:39 | ED PDOC ---
Post-Departure Follow-Up ct abd/p faxed to dr morris for fu Eliseo Dillard MD Jan 21, 2020 11:39
== END 2020-01-18 13:03 | disposition home or self-care (01) ==
LOC: M ED 09:33
DX: R10.9 Unspecified abdominal pain (principal); I88.0 Nonspecific mesenteric lymphadenitis; I10 Essential (primary) hypertension; D64.9 Anemia, unspecified; K21.9 Gastro-esophageal reflux disease without esophagitis; N39.0 Urinary tract infection, site not specified; I30.9 Acute pericarditis, unspecified; Z79.899 Other long term (current) drug therapy
CPT/HCPCS: 36415; 74178; 80048; 80076; 81001; 82150; 83605; 83690; 85025; 87040; 93041; 96361; 96374; 99284; Q9967

== ENCOUNTER → 2020-07-09 | Outpatient (CLI) | payer BC, OTHER ==
[~2020-07-09] MED LIST changes: +ALLO10TA PO; +FERR32TA; +LOSA50TA88 PO; +METO1TAB33 PO; +OMEP40CA97 PO
--- NOTE | 2020-07-10 08:37 | REP ---
INDICATION: LOW BACK PAIN. Midline low back pain without sciatica. Asymmetric deep tendon reflexes. Patient reports that the left foot left lower extremity reflex test was abnormal. COMPARISON: Comparison is made with imaging from CT study of the abdomen and pelvis dated January 18, 2020.. TECHNIQUE: Sagittal and axial T1 and T2-weighted scans are acquired in the usual fashion with and without fat saturation. Sequences include spin echo, turbo spin-echo, and STIR imaging sequences. FINDINGS: Lumbar vertebral body heights are preserved. There is slight straightening. Cortical and medullary bone signal intensity are normal. No bony destructive lesion is seen. No extra vertebral abnormality is observed. There is no evidence of spondylolysis or spondylolisthesis. The tip of the conus medullaris is normal in position and appearance at T12-L1. On sagittal images, there is narrowing of the T12-L1 disc and there is evidence of a right paracentral focal disc protrusion effacing the ventral margin of the thecal sac. No central canal stenosis is suspected. The axial sequences do not extend this far rostrally. Axial and sagittal images at L1-2, L2-3, and L3-4 are unremarkable. There is no evidence of focal disc protrusion, central canal stenosis, or neural foraminal narrowing. At L4-5, there is mild degenerative narrowing of the disc space and there is desiccation on T2 weighted scans within the disc. There is a broad-based left paracentral focal disc protrusion at L4-5. This subtly indents the thecal sac. There is mild ligamentum flavum and facet hypertrophy bilaterally at L4-5. There is mild central canal stenosis at the L4-5 level as result. No neural foraminal encroachment is seen at the 4 5 level on either side. At L5-S1, there is also bilateral facet hypertrophy left more prominently than right. This can be seen on CT study and produces impressive left-sided neural foraminal narrowing at the L5-S1 level. No focal disc protrusion is seen at 5 1. No central canal stenosis is noted. IMPRESSION: 1. Sagittal images demonstrate evidence of a right paracentral focal disc protrusion at T12-L1. 2. There is a broad-based eccentric left central disc protrusion at L4-5 and mild L4-5 spinal stenosis is seen. 3. There is fairly advanced neural foraminal narrowing on the left at L5-S1 due to bony facet hypertrophy. <Electronically signed by Ryan Loredo > 07/10/20 [id number]
== END ==
LOC: M RAD 18:08
PROVIDERS: ATTEND Family Medicine
DX: M51.26 Other intervertebral disc displacement, lumbar region (principal); R29.2 Abnormal reflex

== ENCOUNTER 2021-06-23 14:31 | Emergency (ER) | payer BC, OTHER ==
[~2021-06-23] VITALS: Ht 177.8 cm; Wt 180.4 kg
[~2021-06-23 14:31] MED LIST changes: +LOSA50TA28 PO; -LOSA50TA88 PO; +OMEP40CA4 PO; -OMEP40CA97 PO
[2021-06-23 16:31] LABS: VENOUS BASE EXCESS -0.1 (-2.0-2.0); VENOUS HCO3 24.2 MEQ/L (23.0-27.0); VENOUS O2 SATURATION 95.2 % (60.0-80.0); VENOUS PARTIAL PRESSURE CO2 38.4 mmHg (38.0-50.0); VENOUS PARTIAL PRESSURE O2 75.7 mmHg (30.0-50.0); VENOUS PH 7.417 UNITS (7.330-7.430); VENOUS STANDARD HCO3 24.3 MEQ/L; VENOUS TOTAL CO2 25.4 MEQ/L (24.0-28.0)
[2021-06-23 16:36] LABS: BASO # 0.1 10^3/uL (0.0-0.2); BASO % 0.6 % (0.0-1.0); EOS # 0.2 10^3/uL (0.0-0.5); EOS % 1.6 % (0.0-3.0); HEMATOCRIT 41.7 % (42.0-52.0); HEMOGLOBIN 13.9 g/dl (13.5-17.5); LYMPH # 2.5 10^3/uL (1.5-5.0); MEAN CORPUSCULAR HEMOGLOBIN 29.5 pg (27.0-33.0); MEAN CORPUSCULAR HGB CONC 33.3 g/dl (32.0-36.5); MEAN CORPUSCULAR VOLUME 88.5 fl (80.0-96.0); MONO # 1.1 10^3/uL (0.0-0.8); MONO % 11.4 % (2.0-8.0); NEUTROPHILS % 60.9 % (36.0-66.0); PLATELET COUNT, AUTOMATED 304 10^3/uL (150-450); RED BLOOD COUNT 4.71 10^6/uL (4.30-6.10); WHITE BLOOD COUNT 9.9 10^3/uL (4.0-10.0)
[2021-06-23 16:57] LABS: BLOOD UREA NITROGEN 16 MG/DL (7-18); CALCIUM LEVEL 8.5 MG/DL (8.5-10.1); CARBON DIOXIDE LEVEL 26 MEQ/L (21-32); CHLORIDE LEVEL 106 MEQ/L (98-107); CREATININE FOR GFR 0.84 MG/DL (0.70-1.30); GLOMERULAR FILTRATION RATE > 60.0 (>60); GLUCOSE, FASTING 106 MG/DL (70-100); SODIUM LEVEL 139 MEQ/L (136-145)
[2021-06-23] MEDS ORDERED: ISOVUE-370 76% 100ML VIAL As Ordered ONE (17:55)
[2021-06-23] MEDS ORDERED: IPRATROPIUM 0.5MG/ALBUTEROL 2.5MG INH SOL UD 3ML (DUONEB) NEB ONE (18:45)
[2021-06-23] MEDS ORDERED: dexameTHASONE 20MG/5ML VIAL (J1100 PER 1MG) IV ONE (19:20)
[2021-06-23 20:03] VITALS: BP 138/82
[2021-06-23] MEDS ORDERED: AZITHROMYCIN 250MG TABLET PO ONE (20:05)
[2021-06-23] MEDS ORDERED: AMOXICILLIN 500 MG CAP PO ONE (20:05)
[2021-06-23] MEDS ORDERED: AMOX500C PO (20:08)
[2021-06-23] MEDS ORDERED: AZIT-12 PO (20:08)
== END 2021-06-23 20:26 | disposition home or self-care (01) ==
LOC: M ED 14:31
DX: J12.3 Human metapneumovirus pneumonia (principal); R91.8 Other nonspecific abnormal finding of lung field; K21.9 Gastro-esophageal reflux disease without esophagitis
CPT/HCPCS: 71046; 71275; 80048; 81001; 82803; 84484; 85025; 85379; 87486; 87581; 87633; 87798; 93005; 94640; 96374; 99284; J1100; Q9967

== ENCOUNTER → 2024-02-21 | Outpatient (REF) | payer BC, OTHER ==
[~2024-02-21] MED LIST changes: +AMOX500C PO; +AZIT-12 PO
[2024-02-21 17:54] LABS: CREATININE,RANDOM URINE 101.1 MG/DL; TOTAL PROTEIN,RANDOM URINE 92.6 MG/DL (0.0-14.0)
== END ==
LOC: M LAB REF 16:41
PROVIDERS: ATTEND Internal Medicine Nephrology
DX: N03.0 Chronic nephritic syndrome with minor glomerular abnormality (principal)

== ENCOUNTER 2024-08-21 17:58 | Emergency (ER) | payer BC, OTHER, SELFPAY ==
[~2024-08-21] VITALS: Ht 175.3 cm; Wt 177.9 kg
[~2024-08-21 17:58] MED LIST changes: +ASPI-731 PO; -ASPI81CH32 PO
[2024-08-21] MEDS ORDERED: BUPR150T12 (18:08)
[2024-08-21] MEDS ORDERED: BUPR-766 (18:08)
[2024-08-21] MEDS ORDERED: ESCITALOPRAM (18:08)
[2024-08-21 19:02] LABS: BASO # 0.0 10^3/uL (0.0-0.2); BASO % 0.3 % (0.0-1.0); EOS # 0.0 10^3/uL (0.0-0.5); EOS % 0.1 % (0.0-3.0); LYMPH # 0.7 10^3/uL (1.5-5.0); LYMPH % 9.2 % (24.0-44.0); MONO # 0.6 10^3/uL (0.0-0.8); MONO % 8.0 % (2.0-8.0); NEUTROPHILS # 6.1 10^3/uL (1.5-8.5); NEUTROPHILS % 82.1 % (36.0-66.0); PLATELET COUNT, AUTOMATED 265 10^3/uL (150-450)
[2024-08-21 19:17] LABS: CALCIUM LEVEL 8.6 MG/DL (8.5-10.1); CARBON DIOXIDE LEVEL 25 MMOL/L (20-31); CHLORIDE LEVEL 102 MMOL/L (98-107); CREATININE FOR GFR 0.80 MG/DL (0.70-1.30); GLOMERULAR FILTRATION RATE > 90.0 (>60); POTASSIUM SERUM 3.9 MMOL/L (3.5-5.1); SODIUM LEVEL 140 MMOL/L (136-145)
[2024-08-21 21:41] VITALS: BP 135/91; TEMP 99.5; O2SAT 97
[2024-08-21 22:19] LABS: KETONE, URINE AUTO RFX TRACE mg/dL (NEGATIVE); LEUKOCYTE ESTERASE UR AUTO RFX NEGATIVE (NEGATIVE); MUCUS, URINE RFX MODERATE (NEGATIVE); NITRITE, URINE AUTO RFX NEGATIVE (NEGATIVE); RBC, URINE AUTO RFX 14 /HPF (0-3); SQUAM EPITHELIAL CELL UR AURFX 0 /HPF (0-6); WBC, URINE AUTO RFX 4 /HPF (0-3)
[2024-08-21] MEDS: ONDANSETRON 4MG 2ML VIAL IV ONE (22:24)
[2024-08-21] MEDS: NS (Normal Saline) 0.9% 1,000 ML IV ONE (22:24)
[2024-08-21] MEDS: KETOROLAC 30 MG/ML 1 ML VIAL IV ONE (22:24)
[2024-08-21 22:52] LABS: ALT/SGPT 42.0 U/L (7.0-40); AST/SGOT 24.0 U/L (<34)
[2024-08-21 22:56] LABS: CPK CREATINE PHOSPHOKINASE 124.0 U/L (46-171)
[2024-08-22] MEDS ORDERED: ONDA-282 PO (01:11)
[2024-08-25 18:33] LABS: LYME TOTAL ANTIBODY CIA <= 0.90 Index (<=0.90)
== END 2024-08-22 01:33 | disposition home or self-care (01) ==
LOC: M ED 17:58
DX: R51.9 Headache, unspecified (principal); R86.0 Abnormal level of enzymes in specimens from male genital organs; K76.0 Fatty (change of) liver, not elsewhere classified; A08.32 Astrovirus enteritis; I31.39 Other pericardial effusion (noninflammatory); I10 Essential (primary) hypertension; K21.9 Gastro-esophageal reflux disease without esophagitis; Z79.899 Other long term (current) drug therapy; Z88.8 Allergy status to other drugs, medicaments and biological substances
CPT/HCPCS: 74176; 80048; 80076; 81001; 82550; 83690; 85025; 86618; 87486; 87507; 87581; 87633; 87798; 93005; 96361; 96374; 96375; 99284; J1885; J2405